=== PATIENT | female | born 1955 | race Caucasian/White ===

== ENCOUNTER → 2017-12-10 11:14 | Outpatient (REF) | payer MEDICARE, MEDICAID, SELFPAY ==
[2017-12-10 17:20] LABS: Basophils % 0.2 % (0.1-2.0); Eosinophils # 0.3 K/mm3 (0.0-0.4); Eosinophils % 3.4 % (0.1-12.0); Hematocrit 45.1 % (37.0-47.0); Hemoglobin 13.8 g/dL (12.2-16.2); Lymphocytes # 3.6 K/mm3 (0.7-4.5); Lymphocytes % 37.9 K/mm3 (10-50); Mean Corpuscular HGB Conc 30.6 g/dL (31.8-35.4); Mean Corpuscular Hemoglobin 32.3 pg (27.0-31.2); Mean Corpuscular Volume 105.4 fl (81-99); Mean Platelet Volume 9.3 fl (7.4-10.4); Monocytes # 0.7 K/mm3 (0.1-1.0); Monocytes % 6.9 % (1.7-9.3); Neutrophils # 4.8 K/mm3 (1.8-7.8); Neutrophils % 51.5 % (37.0-80.0); Platelet Count 299 K/mm3 (142-424); Red Blood Count 4.28 M/mm3 (4.20-5.40); Red Cell Distribution Width 13.3 % (11.5-17.5); White Blood Count 9.4 K/mm3 (4.8-10.8)
[2017-12-10 19:37] LABS: Chol/HDL Ratio 2.9 (1-3.5); Cholesterol 198 mg/dL (140-200); HDL Cholesterol 68 mg/dL (29-89); LDL Cholesterol 102 mg/dL (0-130); Triglycerides 139 mg/dL (30-200); VLDL Cholesterol 28 mg/dL (0-40)
[2017-12-10 19:44] LABS: Alanine Aminotransferase 16 U/L (12-78); Albumin Level 3.5 gm/dL (3.4-5.0); Alkaline Phosphatase 111 U/L (46-116); Anion Gap 12.7 mEq/L (5-15); Aspartate Amino Transferase 15 U/L (15-37); Bilirubin,Total 0.2 mg/dL (0.2-1.0); Blood Urea Nitrogen 7 mg/dL (7-18); Calcium 8.8 mg/dL (8.5-10.1); Carbon Dioxide 29 mmol/L (21.0-32.0); Chloride 102 mmol/L (98-107); Creatinine,Serum 0.73 mg/dL (0.55-1.02); Estimated Glomerular Filt Rate 81 ml/min (>60); Free T4 (Free Thyroxine) 0.82 ng/dl (0.76-1.46); GFR (African American) 98 ML/MIN (>60); Globulin 3.6 gm/dl (1.3-3.2); Glucose 68 mg/dL (74-106); Potassium 4.7 mmoL/L (3.5-5.1); Sodium 139 mmol/L (136-145); Thyroid Stimulating Hormone 8.71 uIU/ml (0.358-3.740); Total Protein,Serum 7.1 gm/dL (6.4-8.2)
== END ==
LOC: LAB 11:14
PROVIDERS: Visit Provider Emergency Medicine
DX: R53.83 Other fatigue (principal); I10 Essential (primary) hypertension
CPT/HCPCS: 80053; 80061; 84439; 84443; 85025

== ENCOUNTER → 2017-12-25 08:14 | Outpatient (CLI) | payer MEDICARE, MEDICAID, SELFPAY ==
--- NOTE | 2017-12-25 08:20 | MM_ITS ---
MM Dig screening mamm BI w/CAD CAD Screening COMPARISON: None, we have been waiting for outside films to arrive and if when they do arrive an addendum can be dictated. INDICATION: There is no personal or family history of breast cancer TECHNIQUE: Standard CC and MLO images were obtained. R2 CAD reviewed. FINDINGS: Minimal fibroglandular densities are seen in the subareolar regions of both breast. The findings are bilateral and symmetrical. There is no suspicious lesion and no suspicious microcalcifications. IMPRESSION: Fibrofatty parenchyma no suspicious lesion seen BI-RADS Category: 1 Negative RECOMMENDED FOLLOW-UP: 1YR - 1 YEAR FOLLOW-UP (A letter has been sent to the patient regarding results of the study.)
== END ==
PROVIDERS: PCP Emergency Medicine; Visit Provider Emergency Medicine
DX: Z12.31 Encounter for screening mammogram for malignant neoplasm of breast (principal)
CPT/HCPCS: 77067

== ENCOUNTER → 2018-01-08 13:56 | Outpatient (REF) | payer MEDICARE, MEDICAID, SELFPAY ==
[2018-01-08 20:30] LABS: Free T4 (Free Thyroxine) 0.88 ng/dl (0.76-1.46)
[2018-01-10 10:18] LABS: Vitamin B12 521 pg/mL (232-1245)
== END ==
LOC: LAB 13:56
PROVIDERS: Visit Provider Emergency Medicine
DX: E03.9 Hypothyroidism, unspecified (principal); R53.83 Other fatigue
CPT/HCPCS: 82607; 84439; 84443

== ENCOUNTER → 2018-03-25 10:22 | Outpatient (REF) | payer MEDICARE, MEDICAID, SELFPAY ==
[2018-03-25 19:20] LABS: Amphetamine/Metha Screen,Urine Negative ng/mL (<1000); Barbiturates Screen,Urine Negative ng/mL (<200); Benzodiazepines Screen,Urine Positive ng/mL (<200); Cannabinoid Screen,Urine Positive ng/mL (<50); Cocaine Screen,Urine Negative ng/mL (<300); Methadone Screen,Urine Negative ng/mL (<300); Opiate Screen,Urine Negative ng/mL (<300); Phencyclidine Screen,Urine Negative ng/mL (<25)
== END ==
LOC: LAB 10:22
PROVIDERS: Visit Provider Emergency Medicine
DX: Z79.899 Other long term (current) drug therapy (principal)
CPT/HCPCS: 80305

== ENCOUNTER → 2018-04-04 14:59 | Outpatient (CLI) | payer MEDICARE, MEDICAID, SELFPAY ==
--- NOTE | 2018-04-04 15:05 | XR_ITS ---
XR shoulder RT min 2V COMPARISON: None HISTORY: Right shoulder pain TECHNIQUE: 3 views right shoulder FINDINGS: The clavicle is intact. The there is minor degenerative change of the AC joint. The humeral head and glenoid appear normal. There are no soft tissue calcifications. IMPRESSION: Minor degenerative change of the AC joint otherwise negative right shoulder
== END ==
PROVIDERS: PCP Emergency Medicine; Visit Provider Nurse Practitioner Family
DX: M25.511 Pain in right shoulder (principal)
CPT/HCPCS: 73030

== ENCOUNTER → 2018-05-21 11:28 | Outpatient (REF) | payer MEDICARE, MEDICAID, SELFPAY ==
[2018-05-21 13:58] LABS: Amphetamine/Metha Screen,Urine Negative ng/mL (<1000); Barbiturates Screen,Urine Negative ng/mL (<200); Benzodiazepines Screen,Urine Positive ng/mL (<200); Cannabinoid Screen,Urine Positive ng/mL (<50); Cocaine Screen,Urine Negative ng/mL (<300); Methadone Screen,Urine Negative ng/mL (<300); Opiate Screen,Urine Negative ng/mL (<300); Phencyclidine Screen,Urine Negative ng/mL (<25)
== END ==
LOC: LAB 11:28
PROVIDERS: Visit Provider Emergency Medicine
DX: Z79.899 Other long term (current) drug therapy (principal)
CPT/HCPCS: 80305

== ENCOUNTER → 2018-06-25 07:38 | Outpatient (CLI) | payer MEDICARE, MEDICAID, SELFPAY ==
--- NOTE | 2018-06-25 07:39 | MR_ITS ---
MR shoulder RT wo con Ordering Physician: Rashid Meza MD Patient Age: 62 years: Female HISTORY: ITS.REASON: evaluate for rotator cuff tear TECHNIQUE: The multisequence imaging performed on 1.5T MR 04/04/2018 COMPARISON : right shoulder radiograph 3 view FINDINGS --Rotator cuff component evaluation: -- Infraspinatus tendon intact. Teres minor unremarkable Subscapularis tendon appears intact. With Adequate coracoid humeral distance Supraspinatus tendon tear Small but definite Full-thickness rotator cuff tear defect is seen at Supraspinatus Tendon critical zone and near its attachment., This full-thickness defect measures up to 9 mm AP x 6.5 mm transverse and most evident towards the posterior aspect of supraspinatus tendon.- With this there is minimal fluid throughout the subdeltoid subacromial bursa. There is some mild increased osseous signal at the cap greater tuberosity at supraspinatus attachment point; however no fracture nor avulsion here . Subacromial space appears fairly adequate, with only slight narrowing anteriorly where it measure 7 mm.. The acromion with fairly neutral with only slight downward orientation towards its on coronal views. There are degenerative/Subchondral cystic changes at the inferior aspect of the tip of acromion, likely sequela of impingement. This area spans over 11 mm & Best seen axial image 6, coronal 8 . Small joint effusion. This outlines the glenoid. The glenoid labrum appears intact. Osseous glenoid intact. Glenohumeral joint spaces fairly well maintained. Joint fluid also likely accounts for the fluid along the biceps tendon sheath.. Biceps tendon itself appears a believe overall intact. The slightly naranjo character just above the bicipital groove on. Most likely magic angle artifact although could reflect very minor area tendinosis. Humeral head otherwise normal contour. IMPRESSION: Limited Full-thickness rotator cuff tear ...This full-thickness tear of Supraspinatus Tendon.- near its insertion. Less than 1 cm size defect evident-with resultant minimal fluid throughout the subdeltoid subacromial bursa. ... Subacromial space, with only slight narrowing ... Small joint effusion Joint effusion .. Slight increased bone signal is seen at cap of greater tuberosity; along with focal degenerative cystic changes involving inferior tip of acromion.-. These features likely a suspect reflects reflect sequela of impingement ...
== END ==
PROVIDERS: PCP Emergency Medicine; Visit Provider Orthopaedic Surgery
DX: M25.511 Pain in right shoulder (principal)
CPT/HCPCS: 73221

== ENCOUNTER → 2018-07-18 09:34 | Outpatient (CLI) | payer MEDICARE, MEDICAID, SELFPAY ==
[2018-07-18 11:01] LABS: Basophils % 0.1 % (0.1-2.0); Eosinophils # 0.4 K/mm3 (0.0-0.4); Eosinophils % 3.9 % (0.1-12.0); Hemoglobin 12.4 g/dL (12.2-16.2); Lymphocytes # 3.4 K/mm3 (0.7-4.5); Mean Corpuscular HGB Conc 31.9 g/dL (31.8-35.4); Mean Corpuscular Volume 103.2 fl (81-99); Mean Platelet Volume 7.2 fl (7.4-10.4); Monocytes # 0.4 K/mm3 (0.1-1.0); Monocytes % 4.5 % (1.7-9.3); Neutrophils % 54.6 % (37.0-80.0); Platelet Count 351 K/mm3 (142-424); Red Blood Count 3.77 M/mm3 (4.20-5.40); Red Cell Distribution Width 13.8 % (11.5-17.5); White Blood Count 9.1 K/mm3 (4.8-10.8)
[2018-07-18 12:46] LABS: Alanine Aminotransferase 20 U/L (12-78); Albumin Level 3.5 gm/dL (3.4-5.0); Albumin/Globulin Ratio 1.2 (1.1-1.8); Alkaline Phosphatase 98 U/L (46-116); Aspartate Amino Transferase 15 U/L (15-37); Bilirubin,Total 0.1 mg/dL (0.2-1.0); Blood Urea Nitrogen 6 mg/dL (7-18); Calcium 8.7 mg/dL (8.5-10.1); Carbon Dioxide 25 mmol/L (21.0-32.0); Chloride 106 mmol/L (98-107); Estimated Glomerular Filt Rate 85 ml/min (>60); GFR (African American) 103 ML/MIN (>60); Globulin 2.9 gm/dl (1.3-3.2); Glucose 93 mg/dL (74-106); Sodium 142 mmol/L (136-145); Total Protein,Serum 6.4 gm/dL (6.4-8.2)
== END ==
PROVIDERS: PCP Emergency Medicine; Visit Provider Orthopaedic Surgery
DX: S49.90XA Unspecified injury of shoulder and upper arm, unspecified arm, initial encounter (principal); Z79.899 Other long term (current) drug therapy
CPT/HCPCS: 36415; 80053; 85025; 93005

== ENCOUNTER → 2018-08-29 18:11 | Outpatient (CLI) | payer MEDICARE, MEDICAID, SELFPAY ==
[2018-08-29 19:01] LABS: Amphetamine/Metha Screen,Urine Negative ng/mL (<1000); Barbiturates Screen,Urine Negative ng/mL (<200); Benzodiazepines Screen,Urine Positive ng/mL (<200); Cannabinoid Screen,Urine Positive ng/mL (<50); Cocaine Screen,Urine Negative ng/mL (<300); Methadone Screen,Urine Negative ng/mL (<300); Opiate Screen,Urine Positive ng/mL (<300); Phencyclidine Screen,Urine Negative ng/mL (<25)
== END ==
PROVIDERS: Visit Provider Emergency Medicine
DX: Z79.899 Other long term (current) drug therapy (principal)
CPT/HCPCS: 80305

== ENCOUNTER → 2018-10-15 14:25 | Outpatient (CLI) | payer MEDICARE, MEDICAID, SELFPAY ==
--- NOTE | 2018-10-15 14:30 | XR_ITS ---
XR chest 2V HISTORY: Pain, hypertension ITS.REASON: pre op ORDERING PHYSICIAN: Rashid Meza MD PATIENT AGE: 62 years COMPARISON: 07/22/2018 FINDINGS: The cardiomediastinal silhouette and pulmonary vascularity are within normal limits. Mild biapical pleural thickening is once again noted not significantly changed. This is slightly more prominent on the right side as compared to the left side. No acute bony anomalies. IMPRESSION: Chronic changes in the apices, no change with no acute finding
--- NOTE | 2018-10-15 14:30 | XR_ITS ---
XR shoulder RT min 2V HISTORY: Right shoulder pain ITS.REASON: right shoulder postoperative DOS 07/22/18 ORDERING PHYSICIAN: Rashid Meza MD PATIENT AGE: 62 years Comparison: 04/04/2018 FINDINGS: There has been an interval osteotomy at the acromioclavicular joint. There are 2 metallic anchors in the proximal humeral area. See is noted at the proximal shaft laterally at 9 mm as well as overlying the humeral head on the internal rotation view likely due to surgical defects. There is mild subacromial stenosis. No fracture or dislocation. IMPRESSION: 1. Status post osteotomy of the acromioclavicular joint. 2. Postsurgical changes of the proximal humerus
== END ==
PROVIDERS: PCP Emergency Medicine; Visit Provider Orthopaedic Surgery
DX: Z09 Encounter for follow-up examination after completed treatment for conditions other than malignant neoplasm (principal); S49.90XA Unspecified injury of shoulder and upper arm, unspecified arm, initial encounter
CPT/HCPCS: 71046; 73030

== ENCOUNTER 2018-11-21 11:00 | Outpatient (RCR) | payer MEDICARE, MEDICAID, SELFPAY ==
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
== END 2018-11-21 11:05 | disposition home or self-care (01) ==
LOC: OT 11:00
PROVIDERS: Visit Provider Orthopaedic Surgery
DX: M75.121 Complete rotator cuff tear or rupture of right shoulder, not specified as traumatic (principal)
CPT/HCPCS: 97014; 97110; 97140; 97166; G0283

== ENCOUNTER → 2018-11-26 18:22 | Outpatient (CLI) | payer MEDICARE, MEDICAID, SELFPAY ==
[2018-11-26 19:53] LABS: Amphetamine/Metha Screen,Urine Negative ng/mL (<1000); Barbiturates Screen,Urine Negative ng/mL (<200); Benzodiazepines Screen,Urine Positive ng/mL (<200); Cannabinoid Screen,Urine Positive ng/mL (<50); Cocaine Screen,Urine Negative ng/mL (<300); Methadone Screen,Urine Negative ng/mL (<300); Opiate Screen,Urine Positive ng/mL (<300); Phencyclidine Screen,Urine Negative ng/mL (<25)
== END ==
PROVIDERS: Visit Provider Emergency Medicine
DX: Z79.899 Other long term (current) drug therapy (principal)
CPT/HCPCS: 80305

== ENCOUNTER → 2018-12-31 09:38 | Outpatient (CLI) | payer MEDICARE, MEDICAID, SELFPAY ==
--- NOTE | 2018-12-31 09:40 | MM_ITS ---
MM Dig screening mamm BI w/CAD CAD Screening COMPARISON: Digital mammograms with CAD 12/25/2017 and analog mammograms 06/23/2007 INDICATION: There is no personal or family history of breast cancer TECHNIQUE: Standard CC and MLO images were obtained. R2 CAD reviewed. FINDINGS: Scattered fibroglandular densities are seen in central portions of both breasts. The findings are bilateral and symmetrical. There is no suspicious lesion in either breast and there are no suspicious microcalcifications. IMPRESSION: Fibrofatty parenchyma with no suspicious lesion seen BI-RADS Category: 1 Negative RECOMMENDED FOLLOW-UP: 1YR - 1 YEAR FOLLOW-UP (A letter has been sent to the patient regarding results of the study.)
== END ==
PROVIDERS: PCP Emergency Medicine; Visit Provider Emergency Medicine
DX: Z12.31 Encounter for screening mammogram for malignant neoplasm of breast (principal)
CPT/HCPCS: 77067

== ENCOUNTER → 2019-02-27 12:43 | Outpatient (CLI) | payer MEDICARE, MEDICAID, SELFPAY ==
[2019-02-27 14:41] LABS: Amphetamine/Metha Screen,Urine Negative ng/mL (<1000); Barbiturates Screen,Urine Negative ng/mL (<200); Benzodiazepines Screen,Urine Positive ng/mL (<200); Cannabinoid Screen,Urine Positive ng/mL (<50); Cocaine Screen,Urine Negative ng/mL (<300); Methadone Screen,Urine Negative ng/mL (<300); Opiate Screen,Urine Positive ng/mL (<300); Phencyclidine Screen,Urine Negative ng/mL (<25)
== END ==
PROVIDERS: Visit Provider Emergency Medicine
DX: Z79.899 Other long term (current) drug therapy (principal)
CPT/HCPCS: 80305

== ENCOUNTER → 2019-05-29 17:09 | Outpatient (CLI) | payer MEDICARE, MEDICAID, SELFPAY ==
[2019-05-29 18:15] LABS: Amphetamine/Metha Screen,Urine Negative ng/mL (<1000); Barbiturates Screen,Urine Negative ng/mL (<200); Benzodiazepines Screen,Urine Positive ng/mL (<200); Cannabinoid Screen,Urine Positive ng/mL (<50); Cocaine Screen,Urine Negative ng/mL (<300); Methadone Screen,Urine Negative ng/mL (<300); Opiate Screen,Urine Positive ng/mL (<300); Phencyclidine Screen,Urine Negative ng/mL (<25)
== END ==
PROVIDERS: Visit Provider Emergency Medicine
DX: Z79.899 Other long term (current) drug therapy (principal)
CPT/HCPCS: 80305

== ENCOUNTER → 2019-08-26 15:08 | Outpatient (CLI) | payer MEDICARE, MEDICAID, SELFPAY ==
[2019-08-26 19:43] LABS: Amphetamine/Metha Screen,Urine Negative ng/mL (<1000); Barbiturates Screen,Urine Negative ng/mL (<200); Benzodiazepines Screen,Urine Positive ng/mL (<200); Cannabinoid Screen,Urine Positive ng/mL (<50); Cocaine Screen,Urine Negative ng/mL (<300); Methadone Screen,Urine Negative ng/mL (<300); Opiate Screen,Urine Positive ng/mL (<300); Phencyclidine Screen,Urine Negative ng/mL (<25)
== END ==
PROVIDERS: Visit Provider Emergency Medicine
DX: Z79.899 Other long term (current) drug therapy (principal)
CPT/HCPCS: 80305

== ENCOUNTER → 2020-01-13 12:31 | Outpatient (CLI) | payer MEDICARE, MEDICAID, SELFPAY ==
--- NOTE | 2020-01-13 12:42 | XR_ITS ---
PROCEDURE: XR KNEE RT 4V CLINICAL INDICATION: right knee pain COMPARISON: No exams were available for comparison FINDINGS: No fracture or dislocation. No lytic or blastic change. There is normal mineralization. The joint spaces are well-preserved. No significant degenerative/arthritic changes. No erosive changes evident. Other findings:None. IMPRESSION: Negative right Dictated by: Yoel Duran MD 01/13/2020 18:42 Electronically signed by Yoel Duran MD in [place] 01/13/2020 18:42
--- NOTE | 2020-01-13 12:42 | XR_ITS ---
PROCEDURE: XR KNEE LT 4V CLINICAL INDICATION: left knee pain COMPARISON: No exams were available for comparison FINDINGS: No fracture or dislocation. No lytic or blastic change. There is normal mineralization. The joint spaces are well-preserved. No significant degenerative/arthritic changes. No erosive changes evident. Other findings:None. IMPRESSION: Negative left knee Dictated by: Yoel Duran MD 01/13/2020 18:41 Electronically signed by Yoel Duran MD in [place] 01/13/2020 18:41
== END ==
PROVIDERS: PCP Emergency Medicine; Visit Provider Orthopaedic Surgery
DX: M25.561 Pain in right knee (principal); M25.562 Pain in left knee
CPT/HCPCS: 73564

== ENCOUNTER → 2020-09-14 09:50 | Outpatient (CLI) | payer MEDICARE, MEDICAID, SELFPAY ==
--- NOTE | 2020-09-14 09:54 | CA_ITS ---
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 171.00 (50-130 cm/s) AI PHT 477.00 ms AO Peak GR. 11.80 mmHg AO Mean GR. 5.80 (<5 mmHg) AO VTI 37.44 (18-25 cm) ISHAN (VTI) 2.01 (2.5-4.5 cm2) Mitral Valve MV A Velocity 59.00 (40-130 cm/s) E/A Ratio 1.59 MV Decel. Time 173.00 (160-240 ms) Tricuspid Valve TR P. Velocity 293.00 cm/s RAP Estimate 10.00 mmHg RVSP 44.30 mmHg Left Ventricle Left atrium is mildly enlarged, left ventricle is normal size, mild concentric left ventricular hypertrophy, visually estimated ejection fraction 55% with no regional wall motion abnormality, diastolic parameters are inconclusive. Right Ventricle Right atrium and right ventricle are mildly enlarged with normal contractility. Aortic Valve Aortic valve is thickened and calcified, there is no aortic stenosis, there is mild aortic insufficiency. Mitral Valve Mitral valve is grossly normal, there is mild mitral regurgitation. Tricuspid Valve Tricuspid valve is grossly normal, there is mild tricuspid regurgitation, tricuspid regurgitation jet velocity is inadequate for calculation of the right ventricular systolic pressure. Pulmonic Valve Pulmonic valve is poorly visualized. Great Vessels Aortic root is normal size. Inferior vena cava is mildly dilated with normal inspiratory collapse. Pericardium No significant pericardial effusion noted. Conclusion 1. Biatrial enlargement, normal left ventricular size, mild concentric left ventricular hypertrophy, visually estimated ejection fraction 55% with no regional wall motion abnormality, diastolic parameters are inconclusive. 2. Mildly enlarged right ventricle with normal contractility. 3. Mild aortic, mild mitral and tricuspid regurgitation. 4. No significant pericardial effusion noted. Electronically signed by : Ender Acosta, 09/15/2020 15:36:38
--- NOTE | 2020-09-14 09:54 | CA_ITS ---
APPROVED REPORT Certified Pharmacy Tech: ALIX Laterality: Bilateral Study Quality: Good Indications: bruit Risk Factors Smoking Doppler Spectral Velocity Analysis ECA (R) 73.30/6.00 cm/s ECA (L) 80.30/8.30 cm/s dICA (R) 116.00/38.90 cm/s dICA (L) 138.80/43.70 cm/s Geronimo (R) 82.30/31.50 cm/s Geronimo (L) 87.70/28.90 cm/s pICA (R) 40.70/14.70 cm/s pICA (L) 37.50/22.90 cm/s dCCA (R) 40.40/13.10 cm/s dCCA (L) 66.60/14.20 cm/s mCCA (L) 92.00/12.70 cm/s Vert (R) 53.90/18.00 cm/s ICA/CCA 2.38 Vert (L) 6.90/0.80 cm/s ICA/CCA 2.08 Findings Duplex evaluation demonstrates stenosis of the right proximal internal carotid artery <20% with PSV <140 cm/sec, EDV <100 cm/sec, and IC/CC Ratio <4.0.Duplex evaluation demonstrates stenosis of the left proximal internal carotid artery in the range of 20-49% with PSV <140 cm/sec, EDV <100 cm/sec, and IC/CC Ratio <4.0. Duplex evaluation demonstrates antegrade flow of the bilateral Vertebral Arteries. Left vertebral artery displays scant flow. Conclusion Duplex evaluation demonstrates stenosis of the right proximal internal carotid artery <20% with PSV <140 cm/sec, EDV <100 cm/sec, and IC/CC Ratio <4.0.Duplex evaluation demonstrates stenosis of the left proximal internal carotid artery in the range of 20-49% with PSV <140 cm/sec, EDV <100 cm/sec, and IC/CC Ratio <4.0. Duplex evaluation demonstrates antegrade flow of the bilateral Vertebral Arteries. Left vertebral artery displays scant flow. Electronically signed by : Yoel Duran MD 09/14/2020 18:55:36
== END ==
PROVIDERS: PCP Emergency Medicine; Visit Provider Emergency Medicine
DX: R01.1 Cardiac murmur, unspecified (principal); R09.89 Other specified symptoms and signs involving the circulatory and respiratory systems
CPT/HCPCS: 93306; 93880

== ENCOUNTER → 2020-10-03 10:03 | Outpatient (CLI) | payer MEDICARE, MEDICAID, SELFPAY ==
--- NOTE | 2020-10-03 10:51 | MR_ITS ---
PROCEDURE: MR ANGIO NECK WO CON CLINICAL INDICATION: carotid stenosis LIGHTHEADEDNESS, HEADACHE, AND BLURRED VISION [id number]. FREQUENT NOSE BLEEDS [id number]. PRIOR CARTODI DUBLEX 09-14-20 COMPARISON: US CA CAROTID DUPLEX BI from 09/14/2020 MR MR ANGIO HEAD WO CON from 10/03/2020 TECHNIQUE: 3D [id number] images obtained without contrast with multi slab reformats. FINDINGS: No signal is detected within the left vertebral artery consistent with occlusion or very slow flow. Minimal plaque is present in the proximal aspect of the right ICA with 20 percent or less stenosis. Left ICA has an unremarkable appearance. The common carotid and right vertebral have an unremarkable appearance. IMPRESSION: 1. Non visualization the left vertebral artery within the neck consistent with occlusion or very slow flow. 2. No significant stenosis of the carotids. Dictated by: Yoel Duran MD 10/04/2020 14:01 Yoel Duran MD in [place] 10/04/2020 14:01
--- NOTE | 2020-10-03 10:51 | MR_ITS ---
PROCEDURE: MR ANGIO HEAD WO CON CLINICAL INDICATION: carotid stenosis/scant flow in left vertebral gabbi LIGHTHEADEDNESS, HEADACHE, AND BLURRED VISION [id number]. FREQUENT NOSE BLEEDS [id number]. NO PRIOR. COMPARISON: No exams were available for comparison TECHNIQUE: 3D [id number] images are obtained with multi slab reformats. FINDINGS: The left vertebral is not visualized within the neck and was felt to be due to occlusion or very slow flow. The left vertebral does become visible in the posterior fossa. There is bridge like connection between the 2 vertebrals just proximal to there connection at the basilar artery. Basilar artery has an unremarkable appearance. No evidence of aneurysm AVM or intracranial major branch occlusion. Single-shot MRV is unremarkable. IMPRESSION: 1. 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 2. No aneurysm AVM or other occlusive change evident. Dictated by: Yoel Duran MD 10/04/2020 14:05 Yoel Duran MD in [place] 10/04/2020 14:05
== END ==
PROVIDERS: Visit Provider Emergency Medicine
DX: I65.23 Occlusion and stenosis of bilateral carotid arteries (principal)
CPT/HCPCS: 36415; 70544; 70547; 80048

== ENCOUNTER → 2020-10-03 10:32 | Outpatient (CLI) | payer MEDICARE, MEDICAID, SELFPAY ==
[2020-10-03 10:49] LABS: Anion Gap 11.3 mEq/L (5-15); Blood Urea Nitrogen 16 mg/dl (7-17); Calcium 9.3 mg/dl (8.4-10.2); Carbon Dioxide 32 mmol/L (22.0-30.0); Chloride 95 mmol/L (98-107); Estimated Glomerular Filt Rate 73 ml/min (>60); GFR (African American) 88 ML/MIN (>60); Glucose 106 mg/dl (74-100); Potassium 4.3 mmoL/L (3.5-5.1); Sodium 134 mmol/L (136-145)
== END ==
PROVIDERS: PCP Emergency Medicine; Visit Provider Emergency Medicine
DX: I65.23 Occlusion and stenosis of bilateral carotid arteries (principal)
CPT/HCPCS: 36415; 80048

== ENCOUNTER → 2020-10-24 08:13 | Outpatient (CLI) | payer MEDICARE, MEDICAID, SELFPAY ==
--- NOTE | 2020-10-24 08:13 | CT_ITS ---
PROCEDURE: CT HEAD/BRAIN WO CON CLINICAL INDICATION: TIA like symptoms COMPARISON: No exams were available for comparison TECHNIQUE: Axial images obtained. All CT scans at the facility use one or more dose reduction, viz: automated exposure control, ma/kV adjustment per patient size (including targeted exams where dose is matched to indication, i.e. head), or iterative reconstruction technique. FINDINGS: No midline shift, mass effect, intracranial hemorrhage, hydrocephalus, or extra-axial fluid collection is evident. Sylvian fissures and cortical sulci are somewhat prominent. There are mild bilateral periventricular hypodensities consistent with chronic ischemic white matter changes. The calvarium has an unremarkable appearance. There moderate chronic inflammatory changes of the right mastoids. The left mastoids are clear.. No sinus air-fluid level. IMPRESSION: Findings of age-appropriate cortical atrophy and mild chronic ischemic white matter changes, no acute intracranial pathology noted Dictated by: Dr. Merritt Marinelli MD 10/24/2020 08:43 Dr. Merritt Marinelli MD in [place] 10/24/2020 08:43
== END ==
PROVIDERS: PCP Emergency Medicine; Visit Provider Specialist
DX: I65.02 Occlusion and stenosis of left vertebral artery (principal)
CPT/HCPCS: 36415; 70450; 80061

== ENCOUNTER → 2020-10-24 08:29 | Outpatient (CLI) | payer MEDICARE, MEDICAID, SELFPAY ==
[2020-10-24 09:47] LABS: Chol/HDL Ratio 2.5 (1-3.5); Cholesterol 242 mg/dl (140-200); HDL Cholesterol 96 mg/dl (40-60); Triglycerides 136 mg/dl (30-150); VLDL Cholesterol 27 mg/dL (0-40)
[2020-10-24 09:58] LABS: Direct LDL Cholesterol 113.69 mg/dL (100-129)
== END ==
PROVIDERS: Visit Provider Specialist
DX: I10 Essential (primary) hypertension (principal)
CPT/HCPCS: 36415; 80061

== ENCOUNTER → 2020-11-14 13:02 | Outpatient (CLI) | payer MEDICARE, MEDICAID, SELFPAY | PROVIDERS: PCP Emergency Medicine; Visit Provider Specialist | DX: F41.9 Anxiety disorder, unspecified (principal); G47.8 Other sleep disorders; I10 Essential (primary) hypertension; I65.02 Occlusion and stenosis of left vertebral artery; R07.9 Chest pain, unspecified; Z72.0 Tobacco use | CPT/HCPCS: 94762 ==

== ENCOUNTER → 2020-12-05 06:56 | Outpatient (CLI) | payer MEDICARE, MEDICAID, SELFPAY ==
--- NOTE | 2020-12-05 06:57 | NM_ITS ---
APPROVED REPORT Exam: Nuclear Stress Test Indication: Chest pain, SOB, HTN, High cholesterol, Tobacco use, Family history Patient Location: Outpatient Stress Tech: Freda Kendall [place] Tech:Leonela Maradiaga, ARRT, RT (R)(N) Ht: 5 ft 9 in Wt: 180 lbs Bra Size: A HR: 2 bpm BP: 148/57 mmHg BSA: 1.98 m2 BMI: 26.5 History: Chest pain, SOB, HTN, High cholesterol, Tobacco use, Family history Procedure: Patient received a 0.4 mg of intravenous Lexiscan, resting heart rate 68 bpm, resting blood pressure 148/57 mmHg, with Lexiscan maximum heart rate achived was 81 bpm which is Less than 85 % of the maximum predicted heart rate and blood pressure was 162/63 mmHg. With Lexiscan, patient denied any complaint of chest pain. Electrocardiogram Resting electrocardiogram shows sinus rhythm, with Lexiscan there is less than 1.[address] segment depression from the baseline EKG. The EKG portion of the Lexiscan is nondiagnostic. Cardiac Stress and Resting SPECT Images: Cardiac Stress and Resting SPECT images were obtained using technetium 99m Myoview 28.6 mCi stress and 10.70 mCi at rest. Gated SPECT for analysis of segmental wall motion and calculation of the ejection fraction also done. Cardiac stress and resting SPECT images show uniform myocardial activity without segmental perfusion abnormality, computer derived ejection fraction is 60% with no regional wall motion abnormality, right ventricle is normal size and contractility. Conclusion: 1. The EKG portion of the Lexiscan is nondiagnostic. 2. No scintigraphic evidence of reversible ischemia seen, computer derived ejection fraction is 60% with no regional wall motion abnormality, right ventricle is normal size and contractility. 3. Normal Lexiscan Myoview study. Electronically signed by : Ender Acosta, 12/05/2020 19:34:45
--- NOTE | 2020-12-05 06:57 | CA_ITS ---
APPROVED REPORT Exam: Exercise Treadmill Technologist: Freda Kendall Ht: 5 ft 9 in Wt: 180 lbs BSA: 1.98 m2 HR: 70 bpm BP: 129/85 mmHg Indications: Chest pain, Shortness of Breath Medical History Medications: Lisinopril,,,,, Omeprazole,,,,, Furosemide (LASIX),,,,, Clonidine,,,,, Aspirin,,,,, Diazepam,,,,, Atorvastatin,,,,, Flonase,,,,, Albuterol,,,,, Estradiol,,,,, Diclofenac,,,,, Sertraline,,,,, Stress Test Details Test: LEXISCAN HR Resting HR: 62 bpm Max Heart Rate (APMHR): 157.611156 bpm Max HR Achieved: 102 bpm Target HR (85% APMHR): 133.014865 bpm % of APMHR: 64.97 Recovery HR: 81 bpm BP Resting BP: 148.0/51.0 mmHg Max BP: 162.0/63.0 mmHg Recovery BP: 162.0/63.0 mmHg ECG Resting ECG: Normal Sinus Rhythm Clinical Reason for Termination: Completed Protocol Exercise duration: 04:01 min Highest Stage Achieved: Exercise capacity: 1.0 METs Stress ECG Conclusion Symptoms: Nausea/Vomiting Arrhythmias/Ectopy: None ST-T Changes: None Conclusion: Non-diagnostic lexiscan stress test. Patient received the infusion per protocol without chest pain, ST segment changes or arrhythmias. See the nuclear report for further information. Electronically signed by : Ender Acosta, 12/05/2020 19:21:08
--- NOTE | 2020-12-05 10:10 | HMH.ITSHM ---
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 []ALBUTEROL ARIPIPRAZOLE ASA CALCIUM CLONIDINE CYANOCABALAMIN ATORVASTATIN DIAZEPAM ESTRADIOL ETODOLAC FUROSEMIDE LISINOPRIL NITRO NIZATIDINE POTASSIUM QUETIAPINE SERTRALINE UMEDIDINIUM TRELEGY OMEPRAZOLE
== END ==
PROVIDERS: PCP Emergency Medicine; Visit Provider Nurse Practitioner Family
DX: I10 Essential (primary) hypertension (principal); I65.23 Occlusion and stenosis of bilateral carotid arteries; J44.9 Chronic obstructive pulmonary disease, unspecified; K21.9 Gastro-esophageal reflux disease without esophagitis; R06.00 Dyspnea, unspecified; R07.89 Other chest pain; Z72.0 Tobacco use
CPT/HCPCS: 78452; 93017; A9502; J2785

== ENCOUNTER → 2020-12-12 17:50 | Outpatient (CLI) | payer MEDICARE, MEDICAID, SELFPAY ==
[2020-12-12 19:22] LABS: Amphetamine/Metha Screen,Urine Negative ng/ml (<1000); Barbiturates Screen,Urine Negative ng/ml (<200)
[2020-12-12 19:23] LABS: Benzodiazepines Screen,Urine Positive ng/ml (<200)
[2020-12-12 19:24] LABS: Cannabinoid Screen,Urine Positive ng/ml (<50); Cocaine Screen,Urine Negative ng/ml (<300)
[2020-12-12 19:25] LABS: Methadone Screen,Urine Negative ng/ml (<300)
[2020-12-12 19:26] LABS: Opiate Screen,Urine Positive ng/ml (<300); Phencyclidine Screen,Urine Negative ng/ml (<25)
== END ==
PROVIDERS: Visit Provider Emergency Medicine
DX: Z79.899 Other long term (current) drug therapy (principal)
CPT/HCPCS: 80305

== ENCOUNTER → 2020-12-13 15:16 | Outpatient (CLI) | payer MEDICARE, SELFPAY ==
[2020-12-13 17:58] LABS: Coronavirus 19 IgG Antibody Negative (Negative); Coronavirus 19 IgM Antibody Negative (Negative)
== END ==
PROVIDERS: Visit Provider Nurse Practitioner Family
DX: Z01.818 Encounter for other preprocedural examination (principal); Z20.822 Contact with and (suspected) exposure to COVID-19
CPT/HCPCS: 36415; 86328

== ENCOUNTER → 2020-12-14 20:06 | Outpatient (CLI) | payer MEDICARE, MEDICAID, SELFPAY | PROVIDERS: PCP Emergency Medicine; Visit Provider Nurse Practitioner Family | DX: G47.33 Obstructive sleep apnea (adult) (pediatric) (principal); I10 Essential (primary) hypertension; J44.9 Chronic obstructive pulmonary disease, unspecified; G47.36 Sleep related hypoventilation in conditions classified elsewhere | CPT/HCPCS: 95810 ==

== ENCOUNTER → 2021-02-15 13:05 | Outpatient (CLI) | payer MEDICARE, MEDICAID, SELFPAY ==
[2021-02-15 13:45] LABS: Basophils % 0.2 % (0.1-2.0); Eosinophils # 0.2 K/mm3 (0.0-0.4); Eosinophils % 2.4 % (0.1-12.0); Hematocrit 43.5 % (37.0-47.0); Hemoglobin 14.1 g/dL (12.2-16.2); Lymphocytes # 2.7 K/mm3 (0.7-4.5); Lymphocytes % 33.7 % (10-50); Mean Corpuscular HGB Conc 32.4 g/dL (31.8-35.4); Mean Corpuscular Hemoglobin 34.3 pg (27.0-31.2); Mean Platelet Volume 8.3 fl (7.4-10.4); Monocytes # 0.5 K/mm3 (0.1-1.0); Neutrophils # 4.6 K/mm3 (1.8-7.8); Neutrophils % 57.7 % (37.0-80.0); Platelet Count 298 K/mm3 (142-424); Red Blood Count 4.11 M/mm3 (4.20-5.40); Red Cell Distribution Width 15.2 % (11.5-17.5); White Blood Count 7.9 K/mm3 (4.8-10.8)
[2021-02-15 14:19] LABS: Alanine Aminotransferase 13 U/L (12-78); Albumin Level 4.4 g/dl (3.5-5.0); Albumin/Globulin Ratio 1.4 (1.1-1.8); Alkaline Phosphatase 190 U/L (38-126); Anion Gap 9.4 mEq/L (5-15); Aspartate Amino Transferase 25 U/L (14-36); Bilirubin,Total 0.6 mg/dl (0.2-1.3); Blood Urea Nitrogen 12 mg/dl (7-17); Calcium 9.4 mg/dl (8.4-10.2); Carbon Dioxide 30 mmol/L (22.0-30.0); Chloride 104 mmol/L (98-107); Estimated Glomerular Filt Rate 72 ml/min (>60); GFR (African American) 88 ML/MIN (>60); Globulin 3.1 g/dL (1.3-3.2); Glucose 93 mg/dl (74-100); Potassium 4.4 mmoL/L (3.5-5.1); Sodium 139 mmol/L (136-145); Total Protein,Serum 7.5 g/dl (6.3-8.2)
== END ==
PROVIDERS: Visit Provider Specialist
DX: J44.9 Chronic obstructive pulmonary disease, unspecified (principal); R04.0 Epistaxis
CPT/HCPCS: 36415; 80053; 85025

== ENCOUNTER → 2021-02-17 14:03 | Outpatient (CLI) | payer MEDICARE, MEDICAID, SELFPAY ==
[2021-02-17 17:09] LABS: Vitamin B12 295 pg/mL (239-931)
[2021-02-17 17:10] LABS: Folate 3.55 ng/mL
== END ==
PROVIDERS: Visit Provider Specialist
DX: D75.89 Other specified diseases of blood and blood-forming organs (principal); R53.83 Other fatigue
CPT/HCPCS: 82607; 82746

== ENCOUNTER → 2021-03-13 08:00 | Outpatient (CLI) | payer MEDICARE, MEDICAID, SELFPAY ==
[2021-03-14 09:50] LABS: Benzodiazepines Screen,Urine Positive ng/ml (<200)
[2021-03-14 09:51] LABS: Amphetamine/Metha Screen,Urine Negative ng/ml (<1000); Barbiturates Screen,Urine Negative ng/ml (<200)
[2021-03-14 09:52] LABS: Cannabinoid Screen,Urine Positive ng/ml (<50)
[2021-03-14 09:53] LABS: Cocaine Screen,Urine Negative ng/ml (<300); Methadone Screen,Urine Negative ng/ml (<300)
[2021-03-14 09:56] LABS: Opiate Screen,Urine Positive ng/ml (<300)
[2021-03-14 09:57] LABS: Phencyclidine Screen,Urine Negative ng/ml (<25)
== END ==
PROVIDERS: Visit Provider Emergency Medicine
DX: Z79.899 Other long term (current) drug therapy (principal)
CPT/HCPCS: 80305

== ENCOUNTER 2021-07-03 10:50 | Emergency (ER) | payer MEDICARE, MEDICAID, SELFPAY ==
[2021-07-03 11:40] VITALS: BP 206/135; PULSE 98; RESP 18; TEMP 37; O2SAT 99; BMI 23.8
--- NOTE | 2021-07-03 12:17 | HMH.EDUTC ---
[facility] [place] Clinical Impression: Abscess of right index finger Disposition: Home, Self-Care Condition on Discharge: Good Instructions: Boil, DI for Skin Abscess Additional Instructions: Keep the wounds clean and dry. Follow up with your regular doctor. Take the antibiotics as directed and apply the topical antibiotics as directed. Follow up with your primary care doctor within 48 hours to have your wound rechecked. Watch the wound for signs of worsening infection, such as worsening redness, drainage, swelling, etc. GO TO THE ER FOR ANY WORSENING SYMPTOMS Prescriptions: Sulfamethoxazole/Trimethoprim [Bactrim DS tablet] 1 each PO BID 10 Days #20 tab Transmission Status: Received by [facility] Mupirocin [Bactroban 2% Ointment 22gm tube] 1 applicatio TP TID 7 Days #1 gm Transmission Status: Received by [facility] cephALEXin [cephALEXin 500mg capsule] 500 mg PO Q6H 10 Days #40 cap Transmission Status: Received by [facility] Referrals: Steve Quiroz MD [Primary Care Provider] - Time of Disposition: 12:59 Medical Decision Making - Medical Records Medical records reviewed: No: I reviewed the patient's medical records. - Amari Inquiry Pt receiving controlled substance: No Vital Signs: 07/03/21 11:40 07/03/21 13:12 Temperature 98.6 F 98.6 F Temperature Source Oral Pulse Rate 98 H Pulse Rate [Right Brachial] 98 H Respiratory Rate 18 18 Blood Pressure 206/135 H Blood Pressure [Right Arm] 206/135 H Blood Pressure Mean [Right Arm] 158 Blood Pressure Source [Right Arm] Automatic Cuff Blood Pressure Position [Right Arm] Sitting 02 Sat by Pulse Oximetry 99 Oxygen Delivery Method Room Air Orders (Tests/Meds): ORDERS Category Date Time Status Wound Culture and Gram Stain Stat Micro 07/03/21 12:30 Results [facility] [place] HPI - General Stated complaint: boil on rt index finger Time Seen by Provider: 07/03/21 12:17 - History of Present Illness Provider Complaint: She states that 3 days ago she noticed a blister or a boil starting to come up on her right index finger. Since then, the place has got larger and it has drained tannish drainage. She denies any known injury. She denies being a diabetic. She denies fever or chills. - Related Data Home Medications Medication Instructions Recorded Confirmed aspirin 325 mg tablet 325 mg PO DAILY tab 12/10/17 03/13/21 Diclofenac Sodium [Voltaren 100gm 2 g TOPICAL QID 01/07/19 03/13/21 Topical Gel] aripiprazole 20 mg tablet 20 mg PO HS tab 11/07/20 03/13/21 furosemide 40 mg tablet 40 mg PO DAILY tab 11/07/20 03/13/21 potassium chloride 10 mEq 10 meq PO DAILY tab 11/07/20 03/13/21 tablet,extended release Previous Rx's Medication Instructions Recorded nizatidine 150 mg capsule 150 mg PO BID 90 Days #180 cap 12/29/18 albuterol sulfate 2.5 mg INHALATION Q6H 30 Days #360 12/19/20 ml Nurtec ODT 75 mg disintegrating 75 mg PO ONCE PRN #10 tab NS 01/31/21 tablet nitroglycerin 0.4 mg sublingual See Rx Instructions .ROUTE 03/14/21 tablet .COMPLEX #25 tab sumatriptan succinate 50 mg tablet See Rx Instructions .ROUTE 04/10/21 .COMPLEX #9 tab azithromycin 250 mg tablet See Rx Instructions PO .COMPLEX #6 04/11/21 tab prednisone 20 mg tablet 20 mg PO BID 10 Days #20 tab 04/11/21 acetaminophen 300 mg-codeine 60 mg 1 tab PO .5 x a day PRN #150 tab 06/07/21 tablet albuterol sulfate 90 mcg/actuation See Rx Instructions .ROUTE 06/07/21 aerosol inhaler .COMPLEX #8.5 g clonidine HCl 0.1 mg tablet See Rx Instructions .ROUTE 06/07/21 .COMPLEX #30 tab diazepam 5 mg tablet 5 mg PO QID #120 tab 06/07/21 estradiol 2 mg tablet See Rx Instructions .ROUTE 06/07/21 .COMPLEX #60 tab fluticasone fur. 100 mcg-umeclid See Rx Instructions .ROUTE 06/07/21 62.5 mcg-vilant 25 mcg .COMPLEX #60 each inhalat.powder lisinopril 40 mg tablet See Rx Instructions .ROUTE 06/07/21
[2021-07-03 13:12] VITALS: BP 206/135; PULSE 98; RESP 18; TEMP 37; O2SAT 99
== END 2021-07-03 13:13 | disposition home or self-care (01) ==
PROVIDERS: Emergency Provider Nurse Practitioner Family; PCP Emergency Medicine
DX: L02.511 Cutaneous abscess of right hand (principal); F41.8 Other specified anxiety disorders; I25.10 Atherosclerotic heart disease of native coronary artery without angina pectoris; K21.9 Gastro-esophageal reflux disease without esophagitis; F17.210 Nicotine dependence, cigarettes, uncomplicated; I10 Essential (primary) hypertension
CPT/HCPCS: G0463; 87070; 87077; 87186; 87205; 99202

== ENCOUNTER → 2021-08-18 17:36 | Outpatient (CLI) | payer MEDICARE, MEDICAID, SELFPAY ==
[2021-08-18 19:46] LABS: Amphetamine/Metha Screen,Urine Negative ng/ml (<1000)
[2021-08-18 19:47] LABS: Barbiturates Screen,Urine Negative ng/ml (<200); Cocaine Screen,Urine Negative ng/ml (<300)
[2021-08-18 19:48] LABS: Benzodiazepines Screen,Urine Positive ng/ml (<200); Cannabinoid Screen,Urine Positive ng/ml (<50)
[2021-08-18 19:50] LABS: Methadone Screen,Urine Negative ng/ml (<300); Opiate Screen,Urine Positive ng/ml (<300)
[2021-08-18 19:51] LABS: Phencyclidine Screen,Urine Negative ng/ml (<25)
== END ==
PROVIDERS: Visit Provider Emergency Medicine
DX: Z79.899 Other long term (current) drug therapy (principal)
CPT/HCPCS: 80305

== ENCOUNTER → 2022-11-13 13:04 | Outpatient (CLI) | payer MEDICARE, MEDICAID, SELFPAY ==
--- NOTE | 2022-11-13 13:10 | XR_ITS ---
FINAL REPORT CLINICAL HISTORY: shoulder pain COMPARISON: 10/15/2018 three-view shoulder and two-view chest FINDINGS: RIGHT SHOULDER Three views demonstrate no acute fracture or dislocation. There are postoperative changes in the humeral head. There is presumed postoperative change of the distal clavicle. There is mild degenerative change. The visualized bony structures are well aligned. No soft tissue abnormality is seen. Incidental finding of mass in the mid right lung measuring 15 mm worrisome for neoplasm. IMPRESSION: No acute process in the shoulder. 15 mm mass mid right lung. Recommend chest CT. Reviewed, Interpreted and Dictated by Jhony Gutierrez III, MD Transcribed by Dianelys Bridges Authenticated and [facility]
== END ==
LOC: RAD 13:05
PROVIDERS: PCP Emergency Medicine; Visit Provider Orthopaedic Surgery
DX: M25.511 Pain in right shoulder (principal)
CPT/HCPCS: 73030

== ENCOUNTER → 2022-11-20 10:21 | Outpatient (CLI) | payer MEDICARE, MEDICAID, SELFPAY ==
--- NOTE | 2022-11-20 10:21 | MR_ITS ---
FINAL REPORT CLINICAL HISTORY: right shoulder pain weakness in arm limited rom prior surgery to shoulder COMPARISON: 06/25/2018 FINDINGS: Multiplanar MR imaging of the right shoulder was performed without contrast. There are postoperative changes from rotator cuff repair. There is thinning of the distal supraspinatus tendon. No full-thickness rotator cuff tear is identified. There are presumed postoperative changes of the distal clavicle. The a.c. joint is intact. A small amount of fluid is seen in the subacromial/subdeltoid bursa. The glenoid labrum is intact. There is presumed postoperative change from biceps tenodesis. Finding is new since previous. No significant glenohumeral joint effusion is seen. There is no evidence of fracture or dislocation. The musculature is intact. There is no evidence of soft tissue mass. IMPRESSION: Postoperative changes as detailed above Reviewed, Interpreted and Dictated by Jhony Gutierrez III, MD Transcribed by Jennifer Garcia Authenticated and [facility]
== END ==
LOC: RAD 10:21
PROVIDERS: PCP Emergency Medicine; Visit Provider Orthopaedic Surgery
DX: M25.511 Pain in right shoulder (principal)
CPT/HCPCS: 73221

== ENCOUNTER → 2023-01-25 13:50 | Outpatient (CLI) | payer MEDICARE, MEDICAID, SELFPAY ==
[2023-01-25 18:13] LABS: Basophils % 0.3 % (0.1-2.0); Eosinophils % 0.3 % (0.1-12.0); Hematocrit 48.7 % (37.0-47.0); Hemoglobin 15.7 g/dL (12.2-16.2); Lymphocytes # 2.1 K/mm3 (0.7-4.5); Lymphocytes % 16.4 % (10-50); Mean Corpuscular HGB Conc 32.3 g/dL (31.8-35.4); Mean Corpuscular Hemoglobin 32.9 pg (27.0-31.2); Mean Corpuscular Volume 101.8 fl (81-99); Mean Platelet Volume 9.8 fl (7.4-10.4); Monocytes # 0.8 K/mm3 (0.1-1.0); Monocytes % 6.6 % (1.7-9.3); Neutrophils # 9.6 K/mm3 (1.8-7.8); Neutrophils % 76.4 % (37.0-80.0); Platelet Count 347 K/mm3 (142-424); Red Blood Count 4.78 M/mm3 (4.20-5.40); Red Cell Distribution Width 14.7 % (11.5-17.5); White Blood Count 12.6 K/mm3 (4.8-10.8)
[2023-01-25 18:14] LABS: Alanine Aminotransferase 18 U/L (12-78); Albumin Level 3.6 g/dl (3.5-5.0); Albumin/Globulin Ratio 1.1 (1.1-1.8); Alkaline Phosphatase 143 U/L (38-126); Anion Gap 20.2 mEq/L (5-15); Aspartate Amino Transferase 24 U/L (14-36); Bilirubin,Total 0.5 mg/dl (0.2-1.3); Blood Urea Nitrogen 12 mg/dl (7-17); Calcium 9.2 mg/dl (8.4-10.2); Carbon Dioxide 30 mmol/L (22.0-30.0); Chloride 87 mmol/L (98-107); Chol/HDL Ratio 2.6 (1-3.5); Cholesterol 145 mg/dl (140-200); Estimated Glomerular Filt Rate 100 ml/min (>60); GFR (African American) 121 ML/MIN (>60); Globulin 3.2 g/dL (1.3-3.2); Glucose 123 mg/dl (74-100); HDL Cholesterol 55 mg/dl (40-60); Potassium 3.2 mmoL/L (3.5-5.1); Sodium 134 mmol/L (136-145); Total Protein,Serum 6.8 g/dl (6.3-8.2); Triglycerides 107 mg/dl (30-150); VLDL Cholesterol 21 mg/dL (0-40)
[2023-01-25 18:25] LABS: Direct LDL Cholesterol 86.23 mg/dL (100-129)
[2023-01-25 18:29] LABS: Free T4 (Free Thyroxine) 1.41 ng/dl (0.78-2.19)
[2023-01-25 18:30] LABS: Erythrocyte Sedimentation Rate 13 mm/hr (0-30)
[2023-01-25 18:35] LABS: 25-OH Vitamin D, Total < 12.8 ng/mL (30-100)
[2023-01-25 18:45] LABS: Thyroid Stimulating Hormone 4.41 uIU/mL (0.465-4.68)
== END ==
PROVIDERS: PCP Emergency Medicine; Visit Provider Emergency Medicine
DX: R53.83 Other fatigue (principal); E55.9 Vitamin D deficiency, unspecified; Z79.899 Other long term (current) drug therapy
CPT/HCPCS: 80053; 80061; 82306; 84439; 84443; 85025; 85651

== ENCOUNTER → 2023-02-07 07:52 | Outpatient (CLI) | payer MEDICARE, MEDICAID, SELFPAY ==
--- NOTE | 2023-02-07 07:52 | CT_ITS ---
FINAL REPORT TECHNIQUE: Axial images were obtained from the lung apex to the mid abdomen by computed tomography. This study was performed with techniques to keep radiation doses as low as reasonably achievable (ALARA). Individualized dose reduction techniques using automated exposure control or adjustment of mA and/or kV according to the patient's size were employed. CLINICAL HISTORY: lung cancer screening FINDINGS: CHEST CT LOW DOSE CTDI vol (mGy): 2.90 DLP (mGy-cm): 97.42 There is a 4.7 x 4.2 cm right paratracheal mass. Mass extends to the hilum. There is a lobular, pleural-based mass in the posterior right lower lobe measuring 6.2 x 5.2 cm. There appears to be invasion into the chest wall. There is partial destruction of the underlying rib well seen on images 47 and 48 of series 3. There is a fracture of the right 8th rib posteriorly which is moderately displaced. This finding is best seen on image 40 of series 3. Biapical pleural and parenchymal scarring is identified. IMPRESSION: Right paratracheal mass extending to the hilum. Mass in the right lower lobe with invasion into the chest wall and partial destruction of an underlying rib. Lung RADS category 4 X. PET-CT and or tissue sampling is highly recommended. Reviewed, Interpreted and Dictated by Jeremy Martins MD Transcribed by Jennifer Garcia Authenticated and . [facility]
--- NOTE | 2023-02-07 07:52 | XR_ITS ---
FINAL REPORT TECHNIQUE: Chest PA & Lateral CLINICAL HISTORY: tobacco use COMPARISON: 10/15/2018 FINDINGS: 2 views of the chest were performed. The heart size is normal. There is an 8 cm well-circumscribed mass in the posterior and inferior right hemithorax new since the prior chest x-ray. There is also enlargement, probably adenopathy, in the right paratracheal region. This is also new since the prior exam. Please see CT examination of the chest for further description. IMPRESSION: 8 cm well-circumscribed mass in the posterior inferior right hemithorax worrisome for neoplasm. Right paratracheal fullness worrisome for adenopathy. Reviewed, Interpreted and Dictated by Jeremy Martins MD Transcribed by Paula Wong Authenticated and [facility]
--- NOTE | 2023-02-07 07:52 | CT_ITS ---
FINAL REPORT TECHNIQUE: After the administration of intravenous contrast, axial images were obtained through the abdomen and pelvis by computed tomography. The study was performed with techniques to keep radiation dose as low as reasonably achievable, (ALARA). Individual dose reduction techniques using automated exposure control or adjustment of mA and/or kV according to the patient's size were employed. CLINICAL HISTORY: abdominal pain, weight loss FINDINGS: Abdomen: The lung bases are clear. The liver parenchyma is homogeneous. The gallbladder is present. The spleen, pancreas, adrenals and kidneys appear unremarkable. The aorta is normal in caliber. There is no free fluid or adenopathy. Pelvis: The appendix is not identified. There is a large amount of retained stool throughout the colon. The urinary bladder is unremarkable. There is no free fluid or adenopathy. There is advanced degenerative disc disease at L4-5. There is mild lumbar scoliosis convex to the right. IMPRESSION: No acute intra-abdominal process. Reviewed, Interpreted and Dictated by Jeremy Martins MD Transcribed by Jennifer Garcia Authenticated and [facility]
== END ==
LOC: RAD 07:52
PROVIDERS: PCP Emergency Medicine; Visit Provider Emergency Medicine
DX: Z87.891 Personal history of nicotine dependence; Z12.2 Encounter for screening for malignant neoplasm of respiratory organs; R10.9 Unspecified abdominal pain
CPT/HCPCS: 71046; 71271; 74177; Q9967

== ENCOUNTER → 2023-02-18 15:46 | Outpatient (CLI) | payer MEDICARE, MEDICAID, SELFPAY ==
--- NOTE | 2023-02-18 15:55 | ECG_ITS ---
APPROVED REPORT Exam: Resting ECG HR:110 bpm ECG Measurements Heart Rate 110 AXES MI 106 P 88 QRSd 85 QRS 96 QT 341 T 79 QTc 406 Conclusion SINUS TACHYCARDIA WITH SHORT MI INTERVAL WITH FREQUENT SUPRAVENTRICULAR PREMATURE COMPLEXES BORDERLINE RIGHT AXIS DEVIATION [QRS AXIS > 90] ABNORMAL RHYTHM ECG UNCONFIRMED REPORT Electronically signed by : Harrison Murphy MD 02/19/2023 20:09:33
== END ==
LOC: RT 15:47
PROVIDERS: PCP Emergency Medicine; Visit Provider Internal Medicine Pulmonary Disease
DX: R06.09 Other forms of dyspnea (principal)
CPT/HCPCS: 93005

== ENCOUNTER → 2023-02-23 09:01 | Outpatient (CLI) | payer MEDICARE, MEDICAID, SELFPAY ==
[2023-02-22 18:41] LABS: Amphetamine/Metha Screen,Urine Negative ng/ml (<1000); Barbiturates Screen,Urine Negative ng/ml (<200)
[2023-02-22 18:42] LABS: Benzodiazepines Screen,Urine Positive ng/ml (<200)
[2023-02-22 18:43] LABS: Cannabinoid Screen,Urine Positive ng/ml (<50); Cocaine Screen,Urine Negative ng/ml (<300)
[2023-02-22 18:44] LABS: Methadone Screen,Urine Negative ng/ml (<300); Phencyclidine Screen,Urine Negative ng/ml (<25)
[2023-02-22 18:46] LABS: Opiate Screen,Urine Positive ng/ml (<300)
== END ==
PROVIDERS: PCP Emergency Medicine; Visit Provider Emergency Medicine
DX: M25.511 Pain in right shoulder (principal); Z79.899 Other long term (current) drug therapy
CPT/HCPCS: 80305

== ENCOUNTER 2023-03-04 11:35 | Day surgery (SDC) | payer MEDICARE, MEDICAID, SELFPAY ==
[2023-03-04] VITALS (9 sets, daily range): BP systolic 94–120; BP diastolic 36–73; PULSE 84–98; RESP 18–20; TEMP 36.8–37.7; O2SAT 78–99; BMI 18.2
[2023-03-04 13:00] LABS: Basophils % 0.2 % (0.1-2.0); Eosinophils # 0.1 K/mm3 (0.0-0.4); Eosinophils % 0.9 % (0.1-12.0); Hemoglobin 12.5 g/dL (12.2-16.2); Lymphocytes # 1.3 K/mm3 (0.7-4.5); Lymphocytes % 9.7 % (10-50); Mean Corpuscular HGB Conc 29.7 g/dL (31.8-35.4); Mean Corpuscular Volume 101.1 fl (81-99); Mean Platelet Volume 8.7 fl (7.4-10.4); Monocytes # 1.2 K/mm3 (0.1-1.0); Monocytes % 8.8 % (1.7-9.3); Neutrophils # 10.9 K/mm3 (1.8-7.8); Neutrophils % 80.4 % (37.0-80.0); Platelet Count 404 K/mm3 (142-424); Red Blood Count 4.16 M/mm3 (4.20-5.40); Red Cell Distribution Width 16.7 % (11.5-17.5); White Blood Count 13.6 K/mm3 (4.8-10.8)
[2023-03-04 13:04] LABS: Anion Gap 10.8 mEq/L (5-15); Blood Urea Nitrogen 14 mg/dl (7-17); Carbon Dioxide 35 mmol/L (22.0-30.0); Chloride 92 mmol/L (98-107); Creatinine Clearance Estimated 51 mL/min (50-200); Estimated Glomerular Filt Rate 124 ml/min (>60); GFR (African American) 150 ML/MIN (>60); Glucose 117 mg/dl (74-100); Potassium 3.8 mmoL/L (3.5-5.1); Sodium 134 mmol/L (136-145)
--- NOTE | 2023-03-04 15:00 | EXP.BRONCH.N ---
Procedure: Date: 03/04/23 Patient Date of :: 1955 Procedure Performed:: Bronchoscopy, airway examination, bronchoalveolar lavage, transbronchial biopsy and endobronchial ultrasound-guided fine-needle aspiration: Indications:: Lung mass and lymphadenopathy Performing Provider:: Shayan Layne MD Referring Provider:: Dr: Steve Quiroz MD Sedation:: General anesthesia Procedure:: Bronchoscopy, airway examination, bronchoalveolar lavage, transbronchial biopsy and endobronchial ultrasound-guided fine-needle aspiration of the lymph node and lung mass: A clean EBUS bronchoscopy was advanced through the ET tube and lymph node surveillance was performed. Patient noted to have lymphadenopathy at station 4L, 7, 10 L and 10 R. Endobronchial ultrasound-guided fine-needle aspiration performed atstations 4L, 7 and 10 R respectively with a total of 5 passes each. Pathology at bedside. Confirmed adequate lymphoid tissue with prominent atypical cells at station 10 R. Additional 2 more FNA samples were performed at station 7 lymphnode were sent for bacterial AFB fungal stain and cultures. Fine-needle aspiration was also performed at the paratracheal mass on the right side, pathology at bedside confirmed necrotic tissue and atypical cells, all the FNA samples from this site was sent and cytopathology EBUS bronchoscopy retracted and a clean therapeutic bronchoscopy was advanced. Near complete occlusion of the right upper lobe airway lumen noted with only less than 10% of lumen being patent. Endobronchial lesion noted in the RUL bronchi. Rest of the airways appear grossly normal. Bronchoalveolar lavage was performed in the RIGHT UPPER LOBE with instillation of 60 cc normal saline with return of 10 cc back. BAL fluid was sent only for cytopathologic examination Endobronchial biopsy was performed in the RIGHT UPPER LOBE with a total of 5 biopsies performed and were sent in formalin for cytopathologic examination. Patient tolerated the procedure with no immediate acute complications. We will follow the patient in pulmonary clinic in 7 to 10 days. Findings:: Please see the procedure note Recommendations:: Postoperative bronchoscopy instructions. Follow patient in pulmonary clinic in 5 to 7 days postprocedure Complications:: No acute immediate complications Estimated blood obtained (mL): 15
--- NOTE | 2023-03-04 15:10 | XR_ITS ---
FINAL REPORT CLINICAL HISTORY: ORDER, portable done in pacu post broncoscopy done in or with biopsy. COMPARISON: 02/07/2023 FINDINGS: A single portable view of the chest was obtained. The heart size and pulmonary vascularity are within normal limits. The mediastinum is within normal limits. Again noted is mass in the right lower thorax. New right upper lobe opacities are nonspecific. No pneumothorax. IMPRESSION: Mass right lower thorax again noted. New nonspecific right upper lobe opacities. No pneumothorax post bronchoscopy. Reviewed, Interpreted and Dictated by Jhony Gutierrez III, MD Transcribed by Dianelys Bridges Authenticated and . [facility]
--- NOTE | 2023-03-04 15:16 | SUR.PHASEI ---
Radiology at bedside for CXR and RT for duoneb treatment
--- NOTE | 2023-03-04 15:39 | SUR.PHASEI ---
Pt oxygen sats varies. When pt nods off to sleep, coughs, or blows nose sats drop to 80's. Breathing normally with 2-3L sats stay upper 90's. Encouraged pt to cough and deep breath.
--- NOTE | 2023-03-04 15:55 | SUR.PHASEI ---
HR has been irregular, checked with Jeanette GUAMAN, said this was her baseline and okay with her. Pt says normally has irregular HR.
--- NOTE | 2023-03-04 17:00 | SUR.PHASEII ---
1610- Dr. Layne at bedside. Discussed with MD 02 sats dropping when oxygen is decreased or off. Pt frequently removed oxygen to blow her nose or cough. Pt's ride home is unable to be found or reached by phone. MD discussed with pt about bronch findings and POC. MD ordered a Duoneb treatment. MD agreed to be in contact before discharge or may admit if ride cannot be contacted. 1615- RT at bedside but pt adamant about getting dressed first. In process of getting dressed pt pulled IV out. Dressed IV site and assisted pt with dressing as much would allow. Pt says she is not staying here at the hospital. Frustrated that ride is gone. Discussed with pt the possibility of admission since no ride and 02 sats are so low, 75-78% on RA at this time. Pt said she would not stay at hospital. Spoke honestly with pt about the dangers of such low 02 levels and possible collapse or could occur. Pt said she did not want to stay and would accept the responsibility. 16[facility], both came to bedside. 1645- MD at bedside discussing possible life-threatening outcome if pt leaves hospital at this time. Discussed and encouraged pt to be admitted to med/surg for further monitoring and treatment. 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 Dr. Layne discussed need to sign an AMA form and instructed pt to call 911 or come to the ER if has any problems. Also instructed pt to call the office in the morning so that an appointment could be set for her to return tomorrow to be seen and to use her inhalers at home. Pt verbalized understanding and agreed with instructions. 1700 Pt signed AMA form and was escorted to lobby by myself and Dr. Layne. Pt apologized and thanked us as she went out the doors.
[2023-03-11 08:27] VITALS: BP 108/58; PULSE 84; TEMP 36.8
--- NOTE | 2023-03-11 08:27 | P.PNANES_ITS ---
[facility] Anesthesia Record Part II Anesthesia Record Part II Discharge Time: 15:55 Destination: Surgical Day Care (OP Surgery) PACU nurse assessment reviewed?: Yes Patient Condition:: Good Anesthesia Complications:: None Swallowing reflex intact?: Yes Cyanosis?: No Blood Pressure: 108/58 Pulse Rate: 84 Temperature: 98.3 F Mental Status: Alert & Oriented Pain level:: 0 Nausea and/or vomitting:: None Intake, IV Amount: 0
== END 2023-03-04 17:00 | disposition home or self-care (01) ==
LOC: OR 11:37
PROVIDERS: PCP Emergency Medicine; Visit Provider Internal Medicine Pulmonary Disease
PROC: (CPT 31624; principal; 2023-03-04 12:30)
DX: R59.0 Localized enlarged lymph nodes (principal); C34.11 Malignant neoplasm of upper lobe, right bronchus or lung; F17.210 Nicotine dependence, cigarettes, uncomplicated; I65.23 Occlusion and stenosis of bilateral carotid arteries; J44.9 Chronic obstructive pulmonary disease, unspecified; Z79.899 Other long term (current) drug therapy
CPT/HCPCS: 31624; 31628; 31653; 71045; 80048; 85025; 87070; 87102; 87116; 87186; 87205; 87206; 88112; 88172; 88173; 88305; 88341; 88342; 88360; 94640; J0330

== ENCOUNTER 2023-03-27 13:57 | Inpatient (IN) | payer MEDICARE, MEDICAID, SELFPAY ==
[2023-03-27] VITALS (27 sets, daily range): BP systolic 86–177; BP diastolic 40–103; PULSE 52–159; RESP 11–53; TEMP 36.8–37.2; O2SAT 75–100; BMI 30.9; BMI 23.8
--- NOTE | 2023-03-27 13:50 | ECG_ITS ---
APPROVED REPORT Exam: Resting ECG HR:182 bpm ECG Measurements Heart Rate 182 AXES QRSd 114 QRS -76 QT 260 T 98 QTc 355 Conclusion ATRIAL FIBRILLATION WITH RAPID VENTRICULAR RESPONSE LEFT ANTERIOR FASCICULAR BLOCK [QRS AXIS <= -45, QR IN I, RS IN II] ANTEROLATERAL MYOCARDIAL INFARCTION , PROBABLY RECENT [40+ ms Q WAVE IN I/aVL/V3-V6] ACUTE VA UNCONFIRMED REPORT Electronically signed by : Harrison Murphy MD 03/27/2023 21:01:05
--- NOTE | 2023-03-27 13:59 | ECG_ITS ---
APPROVED REPORT Exam: Resting ECG HR:123 bpm ECG Measurements Heart Rate 123 AXES MT 118 P -30 QRSd 91 QRS -27 QT 300 T -58 QTc 373 Conclusion LOW QRS VOLTAGE IN EXTREMITY LEADS [QRS DEFLECTION < 0.5 mV IN LIMB LEADS] INFERIOR MYOCARDIAL INFARCTION , OF INDETERMINATE AGE [40+ ms Q WAVE AND/OR ST/T ABNORMALITY IN II/aVF] ABNORMAL ECG INTERPRETATION BASED ON A DEFAULT AGE OF 40 YEARS UNCONFIRMED REPORT Electronically signed by : Harrison Murphy MD 03/27/2023 21:00:57
--- NOTE | 2023-03-27 13:59 | PC.NURSE ---
spoke with Dr. Eugene and he arrived at bedside
--- NOTE | 2023-03-27 14:04 | PC.NURSE ---
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
--- NOTE | 2023-03-27 14:18 | XR_ITS ---
FINAL REPORT CLINICAL HISTORY: Shortness of breath, cardiac arrest, intubated COMPARISON: 03/04/2023 FINDINGS: A portable view of the chest was obtained. There is a new ET tube with the tip 2 cm above the sushila. Cardiac and mediastinal silhouettes are within normal limits. There are patchy opacities in the right lung and left upper lobe concerning for bilateral pneumonia. Underlying mass not excluded in the right lower lobe. There is a small right pleural effusion. No pneumothorax. IMPRESSION: Findings concerning for bilateral pneumonia. Underlying mass not excluded right lower lobe. Reviewed, Interpreted and Dictated by Sushila Kim MD Transcribed by Dianelys Bridges Authenticated and [facility]
--- NOTE | 2023-03-27 14:18 | PC.NURSE ---
Attempted to contact listed [facility], however non-working number.
[2023-03-27 14:19] LABS: ABG Base Excess -6.8 mmol/L (-2.4-2.3); ABG HCO3 19.7 mmhg (22.0-26.0); ABG Oxygen Saturation 100 % (90-100); ABG PCO2 41.6 mmhg (35.0-45.0); ABG PH 7.29 mmol/L (7.35-7.45); ABG PO2 494.6 mmhg (80-100); Chloride, Arterial 88 mmol/L (98-107); Potassium, Arterial 4.1 mmoL/L (3.5-5.1); Sodium Arterial 124 mmol/L (137-145)
[2023-03-27 14:20] LABS: Lactate Arterial 9.7 mmol/L (0.4-2.0)
--- NOTE | 2023-03-27 14:22 | CT_ITS ---
FINAL REPORT TECHNIQUE: Axial imaging of the chest is obtained after the administration of contrast. 3-D MIP reformatted images were also obtained and reviewed per PE protocol. This exam was performed using dose reduction technique. CLINICAL HISTORY: cardiac arrest COMPARISON: Noncontrast exam dated 02/07/2023 FINDINGS: There is no evidence of pulmonary embolus. Soft tissue mass along the right paratracheal margin and right hilum encases branches of the right upper lobe pulmonary artery. The main right pulmonary artery is narrowed. Exam is nondiagnostic for aortic dissection. No axillary lymphadenopathy. There is a separate right paratracheal lymph node measuring 2.8 cm that was previously 3.2 cm. The right paratracheal/hilar mass is similar to prior. Subcarinal lymphadenopathy is unchanged. No left hilar lymphadenopathy. The there are bilateral, new, patchy groundglass opacities which are somewhat nodular. There is worsening airspace nodularity in the right upper lobe. A large round masslike opacity in the right lower lobe has increased in size now measuring 7.3 cm. There may be new central cavitation. New right middle lobe airspace disease could be atelectasis or pneumonia. There is a new small right pleural effusion and a trace left pleural effusion. No pericardial effusion. Limited evaluation of the upper abdomen reveals distention of the stomach.. Again seen is destruction of the the posterior right eighth and ninth ribs by the right lower lobe mass. IMPRESSION: 1. No evidence of pulmonary embolus. Right paratracheal/hilar mass encasing portions of the right main and upper lobe pulmonary arteries. 2. Nondiagnostic for aortic dissection. 3. Right lower lobe mass consistent with malignancy that is increased in size with metastatic lymphadenopathy. 4. Patchy new bilateral groundglass opacities, somewhat nodular which are favored to be infectious or inflammatory although metastatic disease within the differential diagnosis. Authenticated and [facility]
--- NOTE | 2023-03-27 14:22 | CT_ITS ---
FINAL REPORT TECHNIQUE: Thin section axial images were obtained from skull base to vertex without contrast. Coronal reconstruction images were obtained from the axial data. Exam was performed using dose reduction technique. CLINICAL HISTORY: Cardiac arrest COMPARISON: 10/24/2020 FINDINGS: There is no mass effect or midline shift. There is no hydrocephalus. There is no intracranial hemorrhage. The posterior fossa is without acute abnormality. The basilar cisterns are preserved. The soft tissues are without acute abnormality. No acute osseous abnormality is identified. IMPRESSION: No acute intracranial abnormality. Reviewed, Interpreted and Dictated by Mary Kim MD Transcribed by Jennifer Garcia Authenticated and [facility]
--- NOTE | 2023-03-27 14:23 | HMH.EDGENADL ---
Discharge Plan Disposition Chief Complaint: Cardiac Arrest/CPR Prescriptions Prescriptions: No Action diazepam 5 mg tablet 5 mg PO QID Qty: 120 1RF aspirin 325 mg tablet 325 mg PO DAILY Qty: 90 3RF atorvastatin 80 mg tablet See Rx Instructions .ROUTE .COMPLEX MDD meds Rx Instructions: TAKE ONE TABLET BY MOUTH ONCE A DAY clonidine HCl 0.1 mg tablet See Rx Instructions .ROUTE .COMPLEX Rx Instructions: TAKE ONE TABLET BY MOUTH ONCE A DAY FOR BLOOD PRESSURE albuterol sulfate 2.5 mg /3 mL (0.083 %) solution for nebulization 2.5 mg INHALATION Q6H sumatriptan succinate 50 mg tablet See Rx Instructions .ROUTE .COMPLEX Rx Instructions: TAKE 1 TABLET BY MOUTH AT ONSET OF MIGRAINE, THEN MAY REPEAT 1 TIME IN 2 HOURS IF NO RELIEF. MAX OF 4 IN 24 HOURS. potassium chloride 10 mEq tablet extended release 10 meq PO DAILY omeprazole 40 mg capsule,delayed release(DR/EC) See Rx Instructions .ROUTE .COMPLEX Rx Instructions: TAKE ONE CAPSULE BY MOUTH ONCE A DAY potassium chloride [Klor-Con M20] 20 mEq tablet,ER particles/crystals 20 meq PO DAILY oxycodone-acetaminophen [Percocet] 10-325 mg tablet 1 tab PO QID amlodipine 10 mg tablet See Rx Instructions .ROUTE .COMPLEX Rx Instructions: TAKE ONE TABLET BY MOUTH ONCE A DAY nitroglycerin 0.4 mg tablet, sublingual See Rx Instructions .ROUTE .COMPLEX Rx Instructions: DISSOLVE 1 TAB UNDER TONGUE AT ONSET OF CHEST PAIN. REPEAT EVERY 5 MINUTES FOR 3 DOSES IF NEEDED. IF NO RELIEF CALL 911. estradiol 2 mg tablet See Rx Instructions .ROUTE .COMPLEX Rx Instructions: TAKE ONE TABLET BY MOUTH 2 TIMES A DAY FOR HORMONE mupirocin 2 % ointment 1 applic TOPICAL BID albuterol sulfate 90 mcg/actuation HFA aerosol inhaler See Rx Instructions .ROUTE .COMPLEX Rx Instructions: INHALE 2 PUFFS BY MOUTH EVERY 6 HOURS NEEDED FOR SHORTNESS OF BREATH OR WHEEZING lisinopril 40 mg tablet 40 mg PO DAILY sertraline 50 mg tablet See Rx Instructions .ROUTE .COMPLEX Rx Instructions: TAKE ONE TABLET BY MOUTH ONCE A DAY cholecalciferol (vitamin D3) 1,250 mcg (50,000 unit) capsule 1,250 mcg PO WEEKLY Trelegy Ellipta 100-62.5-25 mcg blister with device See Rx Instructions .ROUTE .COMPLEX Rx Instructions: INHALE 1 PUFF BY MOUTH ONCE A DAY Referrals Follow up/Referrals: Provider,Referral, [Primary Care Provider] - See instructions Clinical Impressions Clinical Impression: Cardiac arrest, Lung cancer Discharge ED Provider: Gustavo Gaitan General Adult HPI General Chief complaint: Cardiac Arrest/CPR Stated complaint: CODE 500 Time Seen by Provider: 03/27/23 14:00 Mode of Arrival: EMS Source of Information: EMS Limitations: No Limitations Description of Symptoms (Recalled from ER Triage Doc. by RN): Presents to ED post cardiac arrest. Patient found on sidewalk unresponsive/pulseless/apneic at 1310. Prior to arrival patient achieved ROSC. ETT in place assisted ventilations via BVM. History of Present Illness HPI narrative: Patient is a 67-year-old female brought in with cardiac arrest by EMS. Very little is known about her upon arrival other than the fact that she had a history of lung cancer. She was found to be a 67-year-old female who was found down and unresponsive about 13 cm with believe downtime was about 3 minutes prior chest compressions performed by bystanders. EMS got to the patient intubated the patient had chest compressions that were ongoing and got ROSC within about 40 minutes at about 1350. 2 doses of epinephrine were given no other code drugs were given. No prehospital twelve-lead was performed the patient arrived at [facility] subsequently after the ROSC. Related Data Home Medications Medication Instructions Recorded Confirmed albuterol sulfate 2.5 mg/3 mL 2.5 mg inhalation Q6H COPD 03/04/23
[2023-03-27 14:26] LABS: Chloride 84 mmol/L (98-107)
[2023-03-27 14:27] LABS: Potassium 4.9 mmoL/L (3.5-5.1); Sodium 125 mmol/L (136-145)
--- NOTE | 2023-03-27 14:27 | PC.NURSE ---
Next of Kin contacted. Dr. Gaitan spoke with Carri regarding patient's condition.
[2023-03-27 14:29] LABS: Alanine Aminotransferase 51 U/L (12-78); Alkaline Phosphatase 215 U/L (38-126); Aspartate Amino Transferase 88 U/L (14-36); Bilirubin,Total 2.2 mg/dl (0.2-1.3); Blood Urea Nitrogen 19 mg/dl (7-17); Creatinine Clearance Estimated 72 mL/min (50-200); Estimated Glomerular Filt Rate 56 ml/min (>60); GFR (African American) 67 ML/MIN (>60)
[2023-03-27 14:30] LABS: Albumin Level 3.3 g/dl (3.5-5.0); Albumin/Globulin Ratio 0.9 (1.1-1.8); Anion Gap 18.9 mEq/L (5-15); Calcium 10.4 mg/dl (8.4-10.2); Carbon Dioxide 27 mmol/L (22.0-30.0); Globulin 3.6 g/dL (1.3-3.2); Glucose 92 mg/dl (74-100); Total Protein,Serum 6.9 g/dl (6.3-8.2)
[2023-03-27 14:35] LABS: Activated Partial Thrombo Time 33.1 seconds (22.8-30.6); INR 1.82 (0.9-1.1)
[2023-03-27 14:37] LABS: Basophils % 0.3 % (0.1-2.0); Eosinophils # 0.1 K/mm3 (0.0-0.4); Eosinophils % 0.7 % (0.1-12.0); Hematocrit 46.4 % (37.0-47.0); Lymphocytes # 2.3 K/mm3 (0.7-4.5); Lymphocytes % 14.7 % (10-50); Mean Corpuscular Hemoglobin 29.7 pg (27.0-31.2); Mean Corpuscular Volume 105.9 fl (81-99); Mean Platelet Volume 9.3 fl (7.4-10.4); Monocytes # 0.8 K/mm3 (0.1-1.0); Neutrophils # 12.2 K/mm3 (1.8-7.8); Neutrophils % 79.3 % (37.0-80.0); Platelet Count 160 K/mm3 (142-424); Red Blood Count 4.38 M/mm3 (4.20-5.40); Red Cell Distribution Width 17.6 % (11.5-17.5); White Blood Count 15.3 K/mm3 (4.8-10.8)
[2023-03-27 14:39] LABS: MANUAL DIFFERENTIAL MANUAL DIFFERENTIAL (MANUAL DIFF)
--- NOTE | 2023-03-27 14:45 | PC.NURSE ---
Patient to CT with RT and 2 RN's.
--- NOTE | 2023-03-27 14:55 | PC.NURSE ---
Patient back from CT. RT and 2 RN's @ BS
[2023-03-27 15:00] LABS: Lymphocytes % 20 % (10-50); Macrocytosis 2+; Monocytes % 2 % (2-9); Neutrophils % 78 % (42-76); Total Cells Counted 100
[2023-03-27 15:01] LABS: Hypochromasia 2+; Platelet Estimate Normal
--- NOTE | 2023-03-27 15:14 | PC.NURSE ---
called Dr Layne to speak with ER Doctor
[2023-03-27 15:15] LABS: Troponin I 0.08 ng/ml (0.00-0.034)
--- NOTE | 2023-03-27 15:22 | PC.NURSE ---
V/O from for Solu-medrol 125mg IVP
--- NOTE | 2023-03-27 15:47 | PC.NURSE ---
Spoke with Tomasa in care management regarding patient admission to the hospitalist
[2023-03-27 15:59] LABS: Microscopic, Urine URINE MICROSCOPIC (MICROSCOPIC)
--- NOTE | 2023-03-27 16:02 | PC.NURSE ---
Next of Kin has arrived and are waiting in the conference room at this time. TRE Gallegos and TRE Cates are aware. I have also let Tomasa with Care management know as well.
[2023-03-27 16:07] LABS: Appearance,Urine CLEAR (Clear); Blood, Urine TRACE-I (Negative); Color,Urine YELLOW (Yellow); Glucose,Urine (UA) TRACE (Negative); Ketones,Urine Negative (Negative); Leukocyte Esterase,Urine Negative (Negative); Nitrate,Urine Negative (Negative); PH,Urine 5.5 (5.0-8.5); Protein,Urine 2+ (Negative); Specific Gravity, Urine >= 1.030 (1.005-1.030)
[2023-03-27 16:08] LABS: Bilirubin,Urine 2+ (Negative)
[2023-03-27 16:20] LABS: Bacteria,Urine Trace /lpf; WBC,Urine Occasional #/hpf (0-3); Yeast,Urine Occasional /lpf
--- NOTE | 2023-03-27 16:20 | PC.NURSE ---
[facility] notified. Per [facility] outbound sales representative, Inna, pt is ruled out at this time for organ donation. Instructed to call back with TOD for screening of corneal donation.
--- NOTE | 2023-03-27 16:28 | PC.NURSE ---
Report called to Irma TOLEDO
--- NOTE | 2023-03-27 16:30 | PC.NURSE ---
Spoke with Carri/MARIAELENA Hansen listed, with an update on patient. Of note, no relation, friends for the past year.
[2023-03-27 16:33] LABS: Procalcitonin 0.479 ng/mL (0.0-2.0)
--- NOTE | 2023-03-27 16:39 | EXP.HP ---
History of Present Illness *Admission Date: 03/27/23 *Reason for visit:: cardiac arrest *History of present illness: Ms. Hull is a 67 year old female with a past medical history of squamous cell carcinoma of the lung, COPD, tobacco abuse disorder and hypertension. She presented to the hospital via EMS after an out of hospital cardiac arrest. Downtime is unclear. The patient was resuscitated after around 40 minutes of chest compressions; 2 doses of epinephrine were given during the code by EMS. She is currently intubated and unresponsive on a fentanyl drip. [facility] Disclaimer: The information contained in this section may have been updated after the patient was seen, as this information can be updated by other users. Medical History Anxiety Bilateral carotid artery stenosis Chest pain Depression Dyspnea Dyspnea on exertion Hilar lymphadenopathy Hypercalcemia Hyponatremia Hypothyroidism (~12/10/17) Lung mass Mediastinal lymphadenopathy Migraine On mechanically assisted ventilation Shock Smoking greater than 30 pack years Surgical History History of appendectomy History of carpal tunnel surgery History of hysterectomy History of rotator cuff surgery History of tonsillectomy Family History Other Asthma COPD (chronic obstructive pulmonary disease) Heart disease Hypertension Social History (Updated 03/27/23 @ 16:57 by Samantha Mei RN) Smoking Status: Unknown if ever smoked smoking status stop date: 02/18/23 alcohol intake: never substance use type: denies use current occupational status: retired Travel in the last 8 weeks: None household members: significant other housing: apartment lives independently: No education level: high school service: No [place] [facility]: No current occupational exposures/hazards: No caffeine: Yes special adilene needs: No do you feel safe at home: Yes victim of physical abuse: No victim of emotional abuse: No victim of sexual abuse: No would you like helpful sources: No Review of Systems Review of Systems Review of systems:: unable to obtain Meds Home Medications and Allergies Home Medications Medication Instructions Recorded Confirmed Type aspirin 325 mg tablet 325 mg PO DAILY Heart disease #90 01/22/23 03/27/23 Rx tabs diazepam 5 mg tablet 5 mg PO QID Anxiety #120 tabs 02/22/23 03/27/23 Rx albuterol sulfate 2.5 mg/3 mL 2.5 mg inhalation Q6H PRN COPD 03/04/23 03/27/23 History (0.083 %) solution for nebulization albuterol sulfate 90 mcg/actuation 2 puff inhalation QID PRN COPD 03/04/23 03/27/23 History aerosol inhaler amlodipine 10 mg tablet 10 mg PO DAILY HTn 03/04/23 03/27/23 History atorvastatin 80 mg tablet 80 mg PO DAILY Cholesterol 03/04/23 03/27/23 History clonidine HCl 0.1 mg tablet 0.1 mg PO DAILY BP 03/04/23 03/27/23 History estradiol 2 mg tablet 2 mg PO DAILY HORMONE REPLACEMENT 03/04/23 03/27/23 History fluticasone fur. 100 mcg-umeclid 1 ea inhalation BID COPD 03/04/23 03/27/23 History 62.5 mcg-vilant 25 mcg inhalat.powder (Trelegy Ellipta) lisinopril 40 mg tablet 40 mg PO DAILY HTN 03/04/23 03/27/23 History nitroglycerin 0.4 mg sublingual 0.4 mg sublingual DIRECTED PRN 03/04/23 03/27/23 History tablet Chest pain omeprazole 40 mg capsule,delayed 40 mg PO DAILY Reflux/Acid reflux 03/04/23 03/27/23 History release oxycodone-acetaminophen 10 mg-325 1 tab PO QID PRN Pain 03/04/23 03/27/23 History mg tablet (Percocet) potassium chloride 10 mEq 10 meq PO DAILY Supplement 03/04/23 03/27/23 History tablet,extended release sertraline 50 mg tablet 50 mg PO DAILY Anxiety 03/04/23 03/27/23 History sumatriptan succinate 50 mg tablet 50 mg PO DIRECTED PRN migraines 03/04/23 03/27/23 History New Prescriptions to Start Prescriptions: Allergies Allergy/AdvReac
[2023-03-27 16:59] LABS: Thyroid Stimulating Hormone 8.87 uIU/mL (0.465-4.68)
--- NOTE | 2023-03-27 17:00 | PC.NURSE ---
admitted pt to 217 from ER, pt had fentanyl drip going at 30mcg/hr but stopped it as soon as got to floor as pt's emv is a 3T, pt has pinpoint pupils, edema on all extremities, positive pedal pulses, HR 140-160's (notified MD Phan, but MD stated to watch it for now, no new orders at this time), right hand with brown stains and coccyx and gluteal folds have severe redness/suspected DTI, small scattered scabs oozing scant serous fluid, RT Luma changed tubeholder to anchorfast, tube is at 22cm at lip, vent settings are TV 420, rate of 22, FIO2 60%, and peep of 5; pt with oral secretions but none from OETT, lungs sound rhonchi and diminished, no family present but NOK has been notified and updated in ER
--- NOTE | 2023-03-27 17:12 | EXP.PULM.CON ---
History of Present Illness History of present illness: Ms. Hull is a 56-year-old male current smoker greater than [id number] smoking history, lung mass along with mediastinal hilar lymphadenopathy status post EBUS FNA positive for invasive moderately differentiated squamous cell carcinoma of the lung, COPD, exertional dyspnea was to the ER by EMS after cardiac arrest. Unclear downtime, it appears to be patient is having 13 to 15 minutes of downtime followed by EMS arrival and initiated chest compressions with return of circulation for after about 40 minutes. 2 doses of epi were given during the code by EMS. No other drugs were given as per ER note. Patient achieved ROSC while presented to the ER. [facility] Disclaimer: The information contained in this section may have been updated after the patient was seen, as this information can be updated by other users. Medical History Anxiety Bilateral carotid artery stenosis Chest pain Depression Dyspnea Dyspnea on exertion Hilar lymphadenopathy Hypercalcemia Hyponatremia Hypothyroidism (~12/10/17) Lung mass Mediastinal lymphadenopathy Migraine On mechanically assisted ventilation Shock Smoking greater than 30 pack years Surgical History History of appendectomy History of carpal tunnel surgery History of hysterectomy History of rotator cuff surgery History of tonsillectomy Family History Other Asthma COPD (chronic obstructive pulmonary disease) Heart disease Hypertension Social History (Updated 03/27/23 @ 16:57 by Samnatha Mei RN) Smoking Status: Unknown if ever smoked smoking status stop date: 02/18/23 alcohol intake: never substance use type: denies use current occupational status: retired Travel in the last 8 weeks: None household members: significant other housing: apartment lives independently: No education level: high school service: No residential: No current occupational exposures/hazards: No caffeine: Yes special adilene needs: No do you feel safe at home: Yes victim of physical abuse: No victim of emotional abuse: No victim of sexual abuse: No would you like helpful sources: No Review of Systems Review of Systems Review of systems:: unable to obtain Review of systems (narrative): Intubated and sedated Pulmonology Exam Inpatient Vital signs and Labs for Last 24 Hours: Temp Pulse Resp BP Pulse Ox O2 Del Method FiO2 98.9 F 146 H 19 160/63 H 100 Mechanical Ventilation 50 03/27/23 16:30 03/27/23 16:53 03/27/23 17:04 03/27/23 16:53 03/27/23 17:04 03/27/23 17:00 03/27/23 16:53 Laboratory Results - last 24 hr 03/27/23 13:58: WBC 15.3 H, RBC 4.38, Hgb 13.0, Hct 46.4, MCV 105.9 H, MCH 29.7, MCHC 28.0 L, RDW 17.6 H, Plt Count 160, MPV 9.3, Neut % (Auto) 79.3, Lymph % (Auto) 14.7, [place] % (Auto) 5.0, Eos % (Auto) 0.7, Baso % (Auto) 0.3, Neut # (Auto) 12.2 H, Lymph # (Auto) 2.3, [place] # (Auto) 0.8, Eos # (Auto) 0.1, Baso # (Auto) 0.0, Total Counted 100, Neutrophils % (Manual) 78 H, Lymphocytes % (Manual) 20, Monocytes % (Manual) 2, Platelet Estimate Normal, Hypochromasia 2+, Macrocytosis 2+, PT 19.0 H, INR 1.82 H, APTT 33.1 H, Sodium 125 L, Potassium 4.9, Chloride 84 L, Carbon Dioxide 27, Anion Gap 18.9 H, BUN 19 H, Creatinine 1.00, Estimated Creat Clear 72, Estimated GFR 56 L, Est GFR ( Amer) 67, Glucose 92, Calcium 10.4 H, Total Bilirubin 2.2 H, AST 88 H, ALT 51, Alkaline Phosphatase 215 H, Troponin I 0.08 H, Total Protein 6.9, Albumin 3.3 L, Globulin 3.6 H, Albumin/Globulin Ratio 0.9 L, Procalcitonin 0.479, TSH 8.87 H 03/27/23 14:07: Urine Color Yellow, Urine Appearance Clear, Urine pH 5.5, Ur Specific [place] >= 1.030, Urine Protein 2+, Urine Glucose (UA) Trace, Urine Ketones Negative, Urine Blood Trace-i, Urine Nitrate Negative, Urine Bilirubin 2+ A, Urine Urobilinogen 1.
[2023-03-27 18:05] LABS: ABG Base Excess 2.3 mmol/L (-2.4-2.3); ABG HCO3 27.3 mmhg (22.0-26.0); ABG Oxygen Saturation 93 % (90-100); ABG PCO2 46.6 mmhg (35.0-45.0); ABG PH 7.39 mmol/L (7.35-7.45); ABG PO2 66.8 mmhg (80-100); ABG TCO2 28.8 mmhg (23-27)
[2023-03-27 18:06] LABS: Oxygen 50% %; Tidal Volume 400; Vent Rate 18
[2023-03-27 18:07] LABS: Allen's Test Patient Unable; PEEP 5; Source Right Radial
[2023-03-27 18:19] LABS: Reflex Lactic Add Lactic Reflex
[2023-03-27 18:26] LABS: Lactic Acid 4.6 mmol/L (0.7-2.1)
--- NOTE | 2023-03-27 18:26 | PC.NURSE ---
called critical lactic result of 4.6 to cuco Thurman, no new orders at this time
--- NOTE | 2023-03-27 20:10 | PC.NURSE ---
Spoke with KEVIN Thurman concerning BP of 82/47 MAP 58. New order for Levo given per protocol. No other orders given at this time. Will continue to monitor.
[2023-03-27 21:23] LABS: Ethyl Alcohol < 10 mg/dl (0-10)
[2023-03-27 21:55] LABS: NT Pro Brain Natriuretic Pep. 35200 pg/mL (0-125)
[2023-03-27 22:49] LABS: Lactic Acid Follow Up (RFLX 1) 2.9 mmol/L (0.7-2.1)
[2023-03-28] VITALS (26 sets, daily range): BP systolic 86–147; BP diastolic 56–86; PULSE 118–160; RESP 20–44; TEMP 36.8–37; O2SAT 80–100; BMI 23.8
[2023-03-28 00:13] LABS: Reflex Lactic (2 hrs) Add Lactic Reflex
[2023-03-28 00:49] LABS: Lactic Acid Follow up (RFLX 2) 2.8 mmol/L (0.7-2.1)
[2023-03-28 06:31] LABS: Alanine Aminotransferase 34 U/L (12-78); Albumin Level 2.3 g/dl (3.5-5.0); Albumin/Globulin Ratio 0.9 (1.1-1.8); Alkaline Phosphatase 136 U/L (38-126); Anion Gap 11.7 mEq/L (5-15); Aspartate Amino Transferase 92 U/L (14-36); Bilirubin,Total 2.6 mg/dl (0.2-1.3); Blood Urea Nitrogen 23 mg/dl (7-17); Calcium 8.9 mg/dl (8.4-10.2); Carbon Dioxide 26 mmol/L (22.0-30.0); Chloride 91 mmol/L (98-107); Creatinine Clearance Estimated 56 mL/min (50-200); Estimated Glomerular Filt Rate 72 ml/min (>60); GFR (African American) 87 ML/MIN (>60); Globulin 2.7 g/dL (1.3-3.2); Glucose 116 mg/dl (74-100); Magnesium 1.7 mg/dl (1.6-2.3); Potassium 5.7 mmoL/L (3.5-5.1); Sodium 123 mmol/L (136-145)
--- NOTE | 2023-03-28 07:23 | XR_ITS ---
FINAL REPORT CLINICAL HISTORY: MV COMPARISON: 03/27/2023 FINDINGS: A portable view of the chest was obtained. There is an ET tube is in the mid thoracic trachea. Cardiac and mediastinal silhouettes are within normal limits. There are right paratracheal and right lower lung mass like opacities that are unchanged. There are patchy opacities in the left lung are slightly worse. There is a small right pleural effusion. There is no pneumothorax. IMPRESSION: Worsening patchy left lung opacities, may represent pneumonia. Stable masslike opacities in the right lung. Reviewed, Interpreted and Dictated by Mary Kim MD Transcribed by Emanuel Polk Authenticated and [facility]
--- NOTE | 2023-03-28 07:56 | PC.NURSE ---
Addendum entered by Brandee Ovalle RN 03/28/23 08:49: when pt has twitches, eyes flutter open during the twitch Original Note: decreased pt's fentanyl drip to 50mcg/hr (from 80mcg/hr) and increased levophed to 4mcg/min for bp of 86/66 (72) notified MD Ziegler of pt's rhythmic twitching, asked this RN to place order for stat EEG for one hour, will place order
--- NOTE | 2023-03-28 08:07 | PC.NURSE ---
SRNA and this RN turned pt to right side
[2023-03-28 08:27] LABS: ABG Base Excess 3.4 mmol/L (-2.4-2.3); ABG HCO3 26.6 mmhg (22.0-26.0); ABG Oxygen Saturation 100 % (90-100); ABG PCO2 35.1 mmhg (35.0-45.0); ABG PO2 184.8 mmhg (80-100); ABG TCO2 27.7 mmhg (23-27)
[2023-03-28 08:28] LABS: Allen's Test acceptable; Oxygen 60 %; PEEP 5; Source Right Brachial; Tidal Volume 420; Vent Rate 22
--- NOTE | 2023-03-28 08:47 | PC.NURSE ---
pt's bp 127/104, decreased levophed drip to 2mcg/min pt having EEG performed, pt's eyes staying open at all times now, pt still having the rhythmic twitching while eyes open with pupils pointing up; pt has slight cough reflex, pt overbreathing the ventilator (rate is set for 22 and pt breathing 32 times per minute)
--- NOTE | 2023-03-28 09:06 | PC.NURSE ---
Addendum entered by Brandee Ovalle RN 03/28/23 09:39: decreased fentanyl drip to 25mcg/hr Original Note: vent settings changed to 50% FIO2, rate of 20, peep of 5, TV 420
--- NOTE | 2023-03-28 09:19 | SW/DCPLANNER ---
Addendum entered by Rosita Robison 03/28/23 11:53: Per [facility] this report does NOT meet criteria for investigation. I have email Tala elder/ [facility] regarding situation. Original Note: I have contacted [facility] regarding APS referral due to patient's situation: unable to make any decisions and no family listed. ID # is [id number].
[2023-03-28 09:29] LABS: Basophils % 0.2 % (0.1-2.0); Hematocrit 38.6 % (37.0-47.0); Hemoglobin 12.8 g/dL (12.2-16.2); Lymphocytes % 2.6 % (10-50); Mean Corpuscular HGB Conc 33.2 g/dL (31.8-35.4); Mean Corpuscular Hemoglobin 29.5 pg (27.0-31.2); Mean Corpuscular Volume 88.9 fl (81-99); Mean Platelet Volume 11.5 fl (7.4-10.4); Monocytes % 4.6 % (1.7-9.3); Neutrophils # 21.7 K/mm3 (1.8-7.8); Neutrophils % 92.2 % (37.0-80.0); Platelet Count 83 K/mm3 (142-424); Red Blood Count 4.34 M/mm3 (4.20-5.40); Red Cell Distribution Width 18.6 % (11.5-17.5)
[2023-03-28 09:30] LABS: Lymphocytes # 0.6 K/mm3 (0.7-4.5); Monocytes # 1.1 K/mm3 (0.1-1.0)
[2023-03-28 09:31] LABS: MANUAL DIFFERENTIAL MANUAL DIFFERENTIAL (MANUAL DIFF)
--- NOTE | 2023-03-28 09:36 | PC.NURSE ---
bp 130/56, placed levophed drip on standby
[2023-03-28 09:41] LABS: Lymphocytes % 4 % (10-50); Monocytes % 1 % (2-9); Neutrophils % 95 % (42-76); RBC Morphology Normal; Total Cells Counted 100
[2023-03-28 09:42] LABS: Platelet Estimate Slight Decrease
--- NOTE | 2023-03-28 10:37 | HMH.PHAINT1 ---
Pharmacy Intervention Comments: Patient's home medications reviewed to the best of the pharmacies ability. Patient is fully intubated. -Davy Cason, Pharm Student
[2023-03-28 10:41] LABS: White Blood Count 23.5 K/mm3 (4.8-10.8)
--- NOTE | 2023-03-28 10:59 | EXP.PULM.PN ---
Subjective *Date: 03/28/23 *Time: 12:53 Interval history: No acute respiratory vents overnight. Pulmonology Exam Inpatient Vital signs and Labs for Last 24 Hours: Temp Pulse Resp BP Pulse Ox O2 Del Method FiO2 98.6 F 146 H 31 H 104/81 L 98 Mechanical Ventilation 50 03/28/23 04:00 03/28/23 10:54 03/28/23 10:54 03/28/23 10:54 03/28/23 10:54 03/28/23 10:54 03/28/23 10:54 Laboratory Results - last 24 hr 03/27/23 13:58: WBC 15.3 H, RBC 4.38, Hgb 13.0, Hct 46.4, MCV 105.9 H, MCH 29.7, MCHC 28.0 L, RDW 17.6 H, Plt Count 160, MPV 9.3, Neut % (Auto) 79.3, Lymph % (Auto) 14.7, [place] % (Auto) 5.0, Eos % (Auto) 0.7, Baso % (Auto) 0.3, Neut # (Auto) 12.2 H, Lymph # (Auto) 2.3, [place] # (Auto) 0.8, Eos # (Auto) 0.1, Baso # (Auto) 0.0, Total Counted 100, Neutrophils % (Manual) 78 H, Lymphocytes % (Manual) 20, Monocytes % (Manual) 2, Platelet Estimate Normal, Hypochromasia 2+, Macrocytosis 2+, PT 19.0 H, INR 1.82 H, APTT 33.1 H, Sodium 125 L, Potassium 4.9, Chloride 84 L, Carbon Dioxide 27, Anion Gap 18.9 H, BUN 19 H, Creatinine 1.00, Estimated Creat Clear 72, Estimated GFR 56 L, Est GFR ( Amer) 67, Glucose 92, Calcium 10.4 H, Total Bilirubin 2.2 H, AST 88 H, ALT 51, Alkaline Phosphatase 215 H, Troponin I 0.08 H, Total Protein 6.9, Albumin 3.3 L, Globulin 3.6 H, Albumin/Globulin Ratio 0.9 L, Procalcitonin 0.479, TSH 8.87 H 03/27/23 14:07: Urine Color Yellow, Urine Appearance Clear, Urine pH 5.5, Ur Specific [place] >= 1.030, Urine Protein 2+, Urine Glucose (UA) Trace, Urine Ketones Negative, Urine Blood Trace-i, Urine Nitrate Negative, Urine Bilirubin 2+ A, Urine Urobilinogen 1.0, Ur Leukocyte Esterase Negative, Urine RBC 3-5, Urine WBC Occasional, Ur Squamous Epith Cells 5-10, Urine Bacteria Trace, Urine Yeast Occasional 03/27/23 14:16: ABG pH 7.29 L, ABG pCO2 41.6, ABG pO2 494.6 H, ABG HCO3 19.7 L, ABG Total CO2 21.0 L, ABG O2 Saturation 100, ABG Base Excess -6.8 L, ABG Sodium 124 L, ABG Potassium 4.1, ABG Chloride 88 L, ABG Lactate 9.7 H, Arterial Blood Potassium 4.1, Arterial Blood Chloride 88 L, Arterial Blood Ionized Calcium 5.0 L* 03/27/23 17:30: Specimen Source Right radial, O2 % 50%, ABG pH 7.39, ABG pCO2 46.6 H, ABG pO2 66.8 L, ABG HCO3 27.3 H, ABG Total CO2 28.8 H, ABG O2 Saturation 93, ABG Base Excess 2.3, Yoel Test Patient unable, Vent Rate 18, Tidal Volume 400, PEEP 5 03/27/23 17:50: Lactate 4.6 H 03/27/23 19:40: NT-Pro-B Natriuret Pep 06489 H, Plasma/Serum Alcohol < 10 03/27/23 20:40: Troponin I 0.10 H 03/27/23 22:17: Lactate 2.9 H, Troponin I 0.10 H 03/28/23 00:20: Lactate 2.8 H 03/28/23 05:32: WBC 23.5 H* D, RBC 4.34, Hgb 12.8, Hct 38.6, MCV 88.9, MCH 29.5, MCHC 33.2, RDW 18.6 H, Plt Count 83 L D, MPV 11.5 H, Neut % (Auto) 92.2 H, Lymph % (Auto) 2.6 L, [place] % (Auto) 4.6, Eos % (Auto) 0.0 L, Baso % (Auto) 0.2, Neut # (Auto) 21.7 H, Lymph # (Auto) 0.6 L, [place] # (Auto) 1.1 H, Eos # (Auto) 0.0, Baso # (Auto) 0.0, Total Counted 100, Neutrophils % (Manual) 95 H, Lymphocytes % (Manual) 4 L, Monocytes % (Manual) 1 L, Platelet Estimate Slight decrease, RBC Morphology Normal, Sodium 123 L, Potassium 5.7 H, Chloride 91 L, Carbon Dioxide 26, Anion Gap 11.7, BUN 23 H, Creatinine 0.80, Estimated Creat Clear 56, Estimated GFR 72, Est GFR ( Amer) 87 D, Glucose 116 H D, Calcium 8.9, Magnesium 1.7, Total Bilirubin 2.6 H, AST 92 H, ALT 34 D, Alkaline Phosphatase 136 H, Total Protein 5.0 L D, Albumin 2.3 L D, Globulin 2.7, Albumin/Globulin Ratio 0.9 L 03/28/23 07:24: Specimen Source Right brachial, O2 % 60, ABG pH 7.50 H, ABG pCO2 35.1, ABG pO2 184.8 H, ABG HCO3 26.6 H, ABG Total CO2 27.7 H, ABG O2 Saturation 100, ABG Base Excess 3.4 H, Yoel Test acceptable, Vent Rate 22, Tidal Volume 420, PEEP 5 I & O for Labs for Last 24 Hours: Intake & Output 03/25/23 03/26/23 03/27/23 03/28/23 23:59 23:59 23:59 23:59 Intake Total 34.244 / 34.244 4987.423 / 4987.423 Output Total 2250 / 2310 610 / 610 Balance -2215.756 / -2275.756 4377.423 / 4377.423 Weight
[2023-03-28 11:02] LABS: Free T4 (Free Thyroxine) 0.88 ng/dl (0.78-2.19)
--- NOTE | 2023-03-28 11:31 | EXP.CARD.CON ---
History of Present Illness History of Present Illness Consult date: 03/27/23 Requesting physician: Barry Phan Chief complaint: cardiac arrest History of present illness: Pt is sedated, intubated and on mechanical vent. Getting IVF and IV lasix. Off norepinephrine. Per nurse, there is no meaningful movements. Spontaneous twitching noted. EEG is pending. History from chart. Per ER MD: Patient is a 67-year-old female brought in with cardiac arrest by EMS. Very little is known about her upon arrival other than the fact that she had a history of lung cancer. She was found to be a 67-year-old female who was found down and unresponsive about 13 cm with believe downtime was about 3 minutes prior chest compressions performed by bystanders. EMS got to the patient intubated the patient had chest compressions that were ongoing and got ROSC within about 40 minutes at about 1350. 2 doses of epinephrine were given no other code drugs were given. No prehospital twelve-lead was performed the patient arrived at [facility] subsequently after the ROSC. 67-year-old female brought in by EMS found down 40 minutes of downtime with PEA arrest subsequently getting ROSC. Twelve-lead EKG did not show STEMI but did have diffuse ST segment elevations bedside echo had global ischemia this is not consistent with a STEMI I discussed the case with Dr. Eugene who also came to the bedside to evaluate the patient. Patient is brain . I was able to speak to the next of kin that she had listed in the computer system which was Carri Saleh. Lisa Don is not a power of city attorney and is not an immediate family member who can make any decision and is just an acquaintance. She was also able to tell me that she does not have any family that she is aware of that can make these types of decisions. I spoke with Dr. Ng we will get some initial diagnostic work-up done but patient will need to be admitted for further evaluation and treatment and consideration of withdrawal of care. I spoke with Dr. Ng again who again is refusing to admit the patient and states that he did transfer this patient. However there is no indication for transfer as there is no definitive intervention that is needed for this patient who has a devastating neurologic injury. We simply cannot withdraw care at the moment, who cannot find family and will need an ethics consult to withdraw care on this patient. I subsequently spoke to Dr. Sorto the director of hospital medicine and to Dr. Dsouza with pulmonary medicine and they all agreed that this patient needs to be managed here at this hospital and that we need to manage the social aspects of this so that we can withdraw care if that is what is best for this patient. In the meantime patient's blood test returned which showed mildly elevated troponin which is secondary likely to cardiac arrest again no evidence of a STEMI on EKG or bedside echo which showed global ischemia. Creatinine is 1.0 which is mildly elevated from baseline. Sodium mildly depressed at 125 not low enough to out expect this to cause cardiac arrest. Total bilirubin at 2.2 which is nonspecific at this point could be metastatic disease or global ischemia in the setting of cardiac arrest and acidemia and multiple organ dysfunction. CT of the head did not show any intracranial pathology no pulmonary embolism on CT based on my evaluation there is some groundglass opacities which are nonspecific. Overall there is no finding to suggest exactly what caused this patient's cardiac arrest today. Solu-Medrol and breathing treatments have been added to this patient will add antibiotics on as well to cover for pulmonary disease. Per Dr. Phan (Hospitalist): Ms. Hull is a 67 year old female with a past medical history of squamous cell carcinoma of the lung, COPD, tobacco abuse disorder and hypertension. She presented to the hospital via EMS after an out of hospital cardiac arrest. Downtime is uncle
[2023-03-28 12:04] LABS: Barbiturates Screen,Urine Negative ng/ml (<200); Benzodiazepines Screen,Urine Positive ng/ml (<200)
[2023-03-28 12:05] LABS: Amphetamine/Metha Screen,Urine Negative ng/ml (<1000)
[2023-03-28 12:06] LABS: Cannabinoid Screen,Urine Negative ng/ml (<50); Cocaine Screen,Urine Negative ng/ml (<300)
[2023-03-28 12:07] LABS: Methadone Screen,Urine Negative ng/ml (<300)
[2023-03-28 12:08] LABS: Opiate Screen,Urine Negative ng/ml (<300); Phencyclidine Screen,Urine Negative ng/ml (<25)
--- NOTE | 2023-03-28 13:03 | PC.NURSE ---
held fentanyl drip at this time per telephone order from MD Medina
[2023-03-28 13:28] LABS: Creatine Kinase 71 U/L (30-135)
--- NOTE | 2023-03-28 13:28 | PC.NURSE ---
pt's daughter called to check on mother, Estephania Carvajal [phone], notified MD Medina and MD Phan to update Estephania
--- NOTE | 2023-03-28 13:43 | PC.NURSE ---
placed 16 FR NGT to right nare at 65cm for PO meds, checked placement and got green stomach contents back upon aspiration
[2023-03-28 16:07] LABS: Chloride 90 mmol/L (98-107); Potassium 5.2 mmoL/L (3.5-5.1); Sodium 124 mmol/L (136-145)
[2023-03-28 16:10] LABS: Blood Urea Nitrogen 24 mg/dl (7-17); Creatinine Clearance Estimated 56 mL/min (50-200); Estimated Glomerular Filt Rate 63 ml/min (>60); GFR (African American) 76 ML/MIN (>60)
[2023-03-28 16:11] LABS: Calcium 9.8 mg/dl (8.4-10.2); Glucose 123 mg/dl (74-100)
--- NOTE | 2023-03-28 16:28 | PC.NURSE ---
MD Phan spoke with pt's daughter and pt's daughter decided to withdraw care and make pt comfort care at this time, put in order to extubate, RT's Lynn and Luma at bedside extubating pt
[2023-03-28 16:32] LABS: Anion Gap 12.2 mEq/L (5-15); Carbon Dioxide 27 mmol/L (22.0-30.0)
--- NOTE | 2023-03-28 17:01 | EXP.PN ---
Subjective *Date: 03/28/23 *Time: 17:01 Exam Data for Last 24 hours Vital signs and Labs for Last 24 Hours: Temp Pulse Resp BP Pulse Ox O2 Del Method O2 Flow Rate 98.6 F 152 H 44 H 147/56 H 82 L Nasal Cannula 2 03/28/23 04:00 03/28/23 16:51 03/28/23 16:51 03/28/23 16:51 03/28/23 16:51 03/28/23 16:51 03/28/23 16:51 FiO2 50 03/28/23 16:00 Laboratory Results - last 24 hr 03/27/23 13:58: TSH 8.87 H 03/27/23 17:30: Specimen Source Right radial, O2 % 50%, ABG pH 7.39, ABG pCO2 46.6 H, ABG pO2 66.8 L, ABG HCO3 27.3 H, ABG Total CO2 28.8 H, ABG O2 Saturation 93, ABG Base Excess 2.3, Yoel Test Patient unable, Vent Rate 18, Tidal Volume 400, PEEP 5 03/27/23 17:50: Lactate 4.6 H 03/27/23 19:40: NT-Pro-B Natriuret Pep 72008 H, Plasma/Serum Alcohol < 10 03/27/23 20:40: Troponin I 0.10 H 03/27/23 22:17: Lactate 2.9 H, Troponin I 0.10 H 03/28/23 00:20: Lactate 2.8 H 03/28/23 05:32: WBC 23.5 H* D, RBC 4.34, Hgb 12.8, Hct 38.6, MCV 88.9, MCH 29.5, MCHC 33.2, RDW 18.6 H, Plt Count 83 L D, MPV 11.5 H, Neut % (Auto) 92.2 H, Lymph % (Auto) 2.6 L, [place] % (Auto) 4.6, Eos % (Auto) 0.0 L, Baso % (Auto) 0.2, Neut # (Auto) 21.7 H, Lymph # (Auto) 0.6 L, [place] # (Auto) 1.1 H, Eos # (Auto) 0.0, Baso # (Auto) 0.0, Total Counted 100, Neutrophils % (Manual) 95 H, Lymphocytes % (Manual) 4 L, Monocytes % (Manual) 1 L, Platelet Estimate Slight decrease, RBC Morphology Normal, Sodium 123 L, Potassium 5.7 H, Chloride 91 L, Carbon Dioxide 26, Anion Gap 11.7, BUN 23 H, Creatinine 0.80, Estimated Creat Clear 56, Estimated GFR 72, Est GFR ( Amer) 87 D, Glucose 116 H D, Calcium 8.9, Magnesium 1.7, Total Bilirubin 2.6 H, AST 92 H, ALT 34 D, Alkaline Phosphatase 136 H, Total Creatine Kinase 71, Total Protein 5.0 L D, Albumin 2.3 L D, Globulin 2.7, Albumin/Globulin Ratio 0.9 L, Free T4 0.88 03/28/23 07:24: Specimen Source Right brachial, O2 % 60, ABG pH 7.50 H, ABG pCO2 35.1, ABG pO2 184.8 H, ABG HCO3 26.6 H, ABG Total CO2 27.7 H, ABG O2 Saturation 100, ABG Base Excess 3.4 H, Yoel Test acceptable, Vent Rate 22, Tidal Volume 420, PEEP 5 03/28/23 11:40: Urine Opiates Screen Negative, Urine Methadone Screen Negative, Ur Barbituates Screen Negative, Ur Phencyclidine Scrn Negative, Ur Amphetamines Screen Negative, U Benzodiazepines Scrn Positive H, Urine Cocaine Screen Negative, U Marijuana (THC) Screen Negative 03/28/23 15:50: Sodium 124 L, Potassium 5.2 H, Chloride 90 L, Carbon Dioxide 27, Anion Gap 12.2, BUN 24 H, Creatinine 0.90, Estimated Creat Clear 56, Estimated GFR 63, Est GFR ( Amer) 76, Glucose 123 H, Calcium 9.8 I & O for Last 24 hours: Intake & Output 03/25/23 03/26/23 03/27/23 03/28/23 23:59 23:59 23:59 23:59 Intake Total 34.244 / 34.244 5337.423 / 5337.423 Output Total 2250 / 2310 1300 / 1300 Balance -2215.756 / -2275.756 4037.423 / 4037.423 Weight 63.134 kg 63.134 kg Microbiology Reports for the Last 24 Hours: Microbiology 03/27/23 14:07 Urine,Catheterized Urine Culture - Preliminary NO GROWTH AFTER 24 HOURS 03/27/23 14:50 Sputum - Endotracheal Tube Aspirate Gram Stain - Final
--- NOTE | 2023-03-28 18:02 | PC.NURSE ---
pt , MD Phan pronounced
--- NOTE | 2023-03-28 18:06 | PC.NURSE ---
notified pt's daughter Estephania of pt's passing, Estephania would like to use [facility] KEKE contacted for cardiac time of , KEKE to contact family and then call this RN back
--- NOTE | 2023-03-28 18:37 | EXP.DEATH.DS ---
Discharge Sum: Prov Provider Primary care physician: Referral ProviderMD Visit Care Team Role Provider Type Referral Provider, Primary Care Provider Referring William Kaiser MD Other Providers Staff Physician Shayan Layne MD Other Providers Staff Physician Angeline Javed MD Other Providers Consulting Physician Victor M Eugene MD Other Providers Staff Physician SABRINA Valero Other Providers Physician Assistant Osman Gramajo MD Other Providers Consulting Physician Miracle Narvaez APRN Other Providers Nurse Practitioner Tremayne Shine MD Other Providers Consulting Physician Ender Acosta MD Other Providers Staff Physician Sheryl Guerrero, MEDICAL SERVICES COORDINATOR Other Providers Nurse Practitioner Crystal Davies APRN Other Providers Nurse Practitioner Gustavo Gaitan MD Emergency Provider ER Physician Barry Phan MD Admit Provider Physician Attending Provider Admitting clinician: Barry Phan Attending physician on admission: Barry Phan Consults: 03/27/23 15:33 Consult to Pulmonology [CONS] Stat Consulting Provider: Shayan Layne Reason For Consult: cardiac arrest, vent management 03/27/23 17:30 Cardiology Consult [Consult to Cardiology] [CONS] Routine Consulting Provider: Cardiology Reason For Consult: cardiac arrest, tachycardia Pronouncing clinician: Barry Phan Discharge Sum: Diag PCOD Cause of : Cardiac arrest Contributing Factors (1) Hypercalcemia: (2) Hyponatremia: (3) On mechanically assisted ventilation: (4) Shock: Discharge Sum: Summary Date and Time Date of admission: 03/27/23 16:41 Date of : 03/28/23 Time of : 18:02 Hospital Course prior to Hospital Course Information: Ms. Hull is a 67 year old female with a past medical history of squamous cell carcinoma of the lung, COPD, tobacco abuse disorder and hypertension. She presented to the hospital via EMS after an out of hospital cardiac arrest. The patient had collapsed and after a downtime of around 20 minutes EMS found the patient in PEA arrest, initiated chest compressions and intubated the patient at the scene; ROSC was achieved en route to [facility]; drugs administered during the code were two doses of epinephrine. Summary Details: The patient's friend, Carri Saleh, arrived to [facility] and provided collateral history. Carri states that the patient had recently been diagnosed with lung cancer and had said that she did not want to pursue any kind of treatment. The patient was not and had only one child, Estephania Carvajal. Estephania believed that her mother would not want to be intubated and would want comfort to be her primary goal. The patient was compassionately extubated per Estephania's request and shortly thereafter. Condolences were offered to Estephania and Carri. 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
--- NOTE | 2023-03-28 19:12 | PC.NURSE ---
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
--- NOTE | 2023-03-28 19:57 | PC.NURSE ---
[facility] called, not following patient for donation at this time. [facility] rep Alan Cintron, . Ok to release body to home at this time.
--- NOTE | 2023-03-28 20:06 | PC.NURSE ---
[facility] contacted at 1999. State they will send a notification out for patient to be picked up.
== END 2023-03-28 20:58 | disposition expired | DRG 296 ==
LOC: ER 14:32 → 2ND 16:07
PROVIDERS: Internal Medicine Pulmonary Disease; Admitting Provider Internal Medicine; Emergency Provider Student in an Organized Health Care Education/Training Program; Visit Provider Internal Medicine
DX: I46.9 Cardiac arrest, cause unspecified (principal); J96.01 Acute respiratory failure with hypoxia; E87.1 Hypo-osmolality and hyponatremia; R57.9 Shock, unspecified; Z79.890 Hormone replacement therapy; I10 Essential (primary) hypertension; Z79.899 Other long term (current) drug therapy; Z85.118 Personal history of other malignant neoplasm of bronchus and lung; E03.9 Hypothyroidism, unspecified; E83.52 Hypercalcemia; F17.210 Nicotine dependence, cigarettes, uncomplicated
CPT/HCPCS: 31500; 94002; 36415; 70450; 71045; 71275; 80048; 80051; 80053; 80305; 81001; 82550; 82803; 83605; 83735; 83880; 84145; 84439; 84443; 84484; 85007; 85025; 85610; 85730; 87040; 87070; 87086; 87205; 93005; 93306; 94640; 94761; 95819; 99291; J0456; J1953; J2020; Q9967